=== PATIENT | female | born 1945 | race African-American/Black ===

== ENCOUNTER 2017-11-14 10:16 | Emergency (ER) | payer OTHER ==
[2017-11-14 11:39] LABS: Absolute Lymphocytes (CBC) 1.6 K/uL (0.7-4.9); Absolute Monocytes 0.5 K/uL (0.1-1.3); Absolute Neutrophil 2.2 K/uL (1.8-8.0); Basophils % 1.3 % (0-1.3); Eosinophils % 3.9 % (0-4.4); Hematocrit 40.1 % (36.0-45.0); Lymphocytes % 35.3 % (15.3-44.8); MCH 28.7 pg (27.0-35.0); MCV 84.8 fL (80-100); MPV 9.3 fL (7.6-11.3); Monocytes % 10.2 % (3.3-12.3); RBC Red Blood Cell Count 4.73 M/uL (3.86-4.86)
[2017-11-14 11:42] LABS: Protime INR 0.94
--- NOTE | 2017-11-14 11:53 | RAD REPORT ---
EXAM DESCRIPTION: RAD - Chest Single View - 11/14/2017 11:40 am CLINICAL HISTORY: weakness Chest pain. COMPARISON: Chest Pa And Lat (2 Views) dated 11/14/2016; CHEST SINGLE VIEW dated 10/19/2013; CHEST PA AND LAT 2 VIEW dated 11/15/2010; CHEST SINGLE VIEW dated 04/12/1999 FINDINGS: Portable technique limits examination quality. The lungs are grossly clear. The heart is upper limit normal in size. No displaced fractures. IMPRESSION: No acute intrathoracic process suspected.
[2017-11-14 12:00] LABS: Urine Blood NEGATIVE (NEG); Urine Glucose NEGATIVE (NEG); Urine Protein TRACE (NEG)
[2017-11-14 12:44] LABS: Albumin 3.6 g/dL (3.4-5.0); Bilirubin Direct 0.1 mg/dL (0-0.2); Bilirubin Total 0.4 mg/dL (0.2-1.0); Magnesium 1.6 mg/dL (1.8-2.4); Potassium 3.7 mmol/L (3.5-5.1); Protein, Total 7.6 g/dL (6.4-8.2); Thyroid Stimulating Hormone 1.26 uIU/mL (0.36-3.74)
--- NOTE | 2017-11-14 12:54 | ER ---
Nurse's Notes [facility] Name: Daniela Degroot Age: 72 yrs Sex: Female : 1945 Arrival Date: 11/14/2017 Time: 10:21 Bed 19 Private MD: Howard Wright Diagnosis: Weakness;Malaise and fatigue Presentation: 11/14 10:22 Presenting complaint: Patient states: "I got up this morning and took my blood sugar aj1 and said it was out of range. I called my doctor who told me to check it again. When I did it was 459, so they told me to come to the emergency room" Denies pain, reports dizziness and blurred vision. Transition of care: patient was not received from another setting of care. Onset of symptoms was November 14, 2017. Risk Assessment: Do you want to hurt yourself or someone else? Patient reports no desire to harm self or others. Initial Sepsis Screen: Does the patient meet any 2 criteria? No. Patient's initial sepsis screen is negative. Does the patient have a suspected source of infection? No. Patient's initial sepsis screen is negative. Care prior to arrival: None. 10:22 Method Of Arrival: Ambulatory aj1 10:22 Acuity: NEIL 3 aj1 Triage Assessment: 10:25 General: Appears in no apparent distress. comfortable, Behavior is calm, cooperative, aj1 appropriate for age. Pain: Denies pain. Neuro: Level of Consciousness is awake, alert, obeys commands, Gait is steady, Speech is normal, Facial symmetry appears normal, Reports blurred vision dizziness, headache generalized weakness. Cardiovascular: Patient's skin is warm and dry. Respiratory: Airway is patent Respiratory effort is even, unlabored, Respiratory pattern is regular, symmetrical. GI: Patient currently denies nausea, vomiting. Musculoskeletal: Circulation, motion, and sensation intact. Historical: - Allergies: 10:25 Codeine; aj1 - Home Meds: 10:25 Verapamil Oral [Active]; Metformin Oral [Active]; losartan oral oral [Active]; insulin aj1 pen [Active]; - PMHx: 10:25 Diabetes - NIDDM; Hypertension; aj1 - PSHx: 10:25 Knee surgery; aj1 - Immunization history:: Flu vaccine is up to date. - Social history:: Smoking status: Patient/guardian denies using tobacco. - Ebola Screening: : Patient denies travel to an Ebola-affected area in the 21 days before illness onset. Screenin:10 Abuse screen: Denies threats or abuse. Denies injuries from another. Nutritional sg screening: No deficits noted. Tuberculosis screening: No symptoms or risk factors identified. Never had TB. Fall Risk None identified. Assessment: 12:55 Reassessment: Patient appears in no apparent distress at this time. Patient and/or sg family updated on plan of care and expected duration. Pain level reassessed. Patient is alert, oriented x 3, equal unlabored respirations, skin warm/dry/pink. orders received for IV Mag along with DC to home Patient denies pain at this time. Vital Signs: 10:25 BP 152 / 93; Pulse 87; Resp 18; Temp 97.9(TE); Pulse Ox 99% on R/A; Weight 85.73 kg aj1 (R); Height 5 ft. 2 in. (157.48 cm) (R); Pain 0/10; 10:59 BP 147 / 77; Pulse 86; Resp 17; Pulse Ox 97% on R/A; mh5 12:31 BP 165 / 82; Pulse 78; Resp 17; Pulse Ox 98% on R/A; mh5 13:30 BP 142 / 77; Pulse 77; Resp 17; Temp 97.9; Pulse Ox 99% on R/A; Pain 0/10; sg 10:25 Body Mass Index 34.57 (85.73 kg, 157.48 cm) aj1 ED Course: 10:21 Patient arrived in ED. mr 10:21 Howard Wright MD is Private Physician. mr 10:24 Triage completed. aj1 10:25 Arm band placed on Patient placed in an exam room. aj1 10:29 Wyatt Jordan, ITZ is Primary Nurse. sg 10:30 Nilesh Rivero MD is Attending Physician. kdr 11:00 Patient has correct armband on for positive identification. Bed in low position. Call [facility] light in reach. Adult w/ patient. Pulse ox on. NIBP on. 11:28 Initial lab(s) drawn, by tn, sent to lab. Inserted saline lock: 20 gauge in right [facility] antecubital area, using aseptic technique. Blood collected. 11:30 No provider procedures requiring assistance completed. sg 11:32 Basic Metabolic Panel Sent. mh5 11:32 CBC with Diff Sent. mh5 11:32 LFT's Sent. 5 11:32 Magnesium Sent. 5 11:32 NT PRO-BNP Sent. 5 11:32 PT-INR Sent. 5 11:32 Ptt, Activated Sent. mh5 11:32 Troponin (emerg Dept Use Only) Sent. mh5 11:39 XRAY Chest (1 view) In Process Unspecified. EDMS 12:53 Howard Wright MD is Referral Physician. kdr 13:35 IV discontinued, intact, bleeding controlled, No redness/swelling at site. Pressure sg dressing applied. Administered Medications: 12:55 Drug: Magnesium Sulfate 1 grams Route: IVPB; Infused Over: 1 hrs; Site: right forearm; sg 13:35 Follow up: Response: No adverse reaction; IV Status: Completed infusion sg Point of Care Testing: Blood Glucose: 10:59 Blood Glucose: 106 mg/dL; 5 Ranges: Outcome: 12:53 Discharge ordered by MD. kdr 13:34 Patient left the ED. iw 13:35 Discharged to home ambulatory, with family. sg 13:35 Condition: good 13:35 Discharge instructions given to patient, Instructed on discharge instructions, follow up and referral plans. safety practices, Demonstrated understanding of instructions, follow-up care. Signatures: Dispatcher [employer] Kailyn Bowman RN RN aj1 Gay, Steven, RN RN sg Rittger, Kevin, MD MD kdr Rivera, Maria mr Williams, Irene, RN RN iw Martinez, Maria [facility]
--- NOTE | 2017-11-14 12:54 | EDPHYS ---
Physician Documentation [facility] Name: Daniela Degroot Age: 72 yrs Sex: Female : 1945 Arrival Date: 11/14/2017 Time: 10:21 Bed 19 Private MD: Howard Wright ED Physician Nilesh Rivero HPI: 11/14 18:48 This 72 yrs old Black Female presents to ER via Ambulatory with complaints of High kdr Blood Sugar. 18:48 The patient or guardian reports hyperglycemia, that was potentially precipitated by no kdr particular event, with the patient's symptoms witnessed by no one. Onset: The symptoms/episode began/occurred this morning, today. Associated signs and symptoms: Pertinent positives: None. Pertinent negatives: anorexia, constipation, decreased urine output, diaphoresis, diarrhea, dry skin. Current symptoms: In the emergency department the patient's symptoms are unchanged from the initial presentation. The patient has not experienced similar symptoms in the past. The patient has not recently seen a physician. Was told to come to the ED after several outside [facility] were noted to be high. Historical: - Allergies: 10:25 Codeine; aj1 - Home Meds: 10:25 Verapamil Oral [Active]; Metformin Oral [Active]; losartan oral oral [Active]; insulin aj1 pen [Active]; - PMHx: 10:25 Diabetes - NIDDM; Hypertension; aj1 - PSHx: 10:25 Knee surgery; aj1 - Immunization history:: Flu vaccine is up to date. - Social history:: Smoking status: Patient/guardian denies using tobacco. - Ebola Screening: : Patient denies travel to an Ebola-affected area in the 21 days before illness onset. ROS: 18:48 Constitutional: Negative for fever, chills, and weight loss, Eyes: Negative for injury, kdr pain, redness, and discharge, Neck: Negative for injury, pain, and swelling, Cardiovascular: Negative for chest pain, palpitations, and edema, Respiratory: Negative for shortness of breath, cough, wheezing, and pleuritic chest pain, Abdomen/GI: Negative for abdominal pain, nausea, vomiting, diarrhea, and constipation, Back: Negative for injury and pain, : Negative for injury, bleeding, discharge, and swelling, MS/Extremity: Negative for injury and deformity, Skin: Negative for injury, rash, and discoloration, Neuro: Negative for headache, weakness, numbness, tingling, and seizure activity. Psych: Negative for depression, anxiety, suicide ideation, homicidal ideation, and hallucinations, Allergy/Immunology: Negative for hives, rash, and allergies, Hematologic/Lymphatic: Negative for swollen nodes, abnormal bleeding, and unusual bruising. 18:48 Endocrine: Positive for polydipsia, polyuria, Negative for cold intolerance, heat intolerance, polyphagia, weight gain, weight loss, acute changes. Exam: 18:48 Constitutional: This is a well developed, well nourished patient who is awake, alert, kdr and in no acute distress. Head/Face: Normocephalic, atraumatic. Eyes: Pupils equal round and reactive to light, extra-ocular motions intact. Lids and lashes normal. Conjunctiva and sclera are non-icteric and not injected. Cornea within normal limits. Periorbital areas with no swelling, redness, or edema. Neck: Trachea midline, no thyromegaly or masses palpated, and no cervical lymphadenopathy. Supple, full range of motion without nuchal rigidity, or vertebral point tenderness. No Meningismus. Chest/axilla: Normal chest wall appearance and motion. Nontender with no deformity. No lesions are appreciated. Cardiovascular: Regular rate and rhythm with a normal S1 and S2. No gallops, murmurs, or rubs. Normal PMI, no JVD. No pulse deficits. Respiratory: Lungs have equal breath sounds bilaterally, clear to auscultation and percussion. No rales, rhonchi or wheezes noted. No increased work of breathing, no retractions or nasal flaring. Abdomen/GI: Soft, non-tender, with normal bowel sounds. No distension or tympany. No guarding or rebound. No evidence of tenderness throughout. Back: No spinal tenderness. No costovertebral tenderness. Full range of motion. Skin: Warm, dry with normal turgor. Normal color with no rashes, no lesions, and no evidence of cellulitis. MS/ Extremity: Pulses equal, no cyanosis. Neurovascular intact. Full, normal range of motion. Neuro: Awake and alert, GCS 15, oriented to person, place, time, and situation. Cranial nerves II-XII grossly intact. Motor strength 5/5 in all extremities. Sensory grossly intact. Cerebellar exam normal. Normal gait. Psych: Awake, alert, with orientation to person, place and time. Behavior, mood, and affect are within normal limits. Vital Signs: 10:25 BP 152 / 93; Pulse 87; Resp 18; Temp 97.9(TE); Pulse Ox 99% on R/A; Weight 85.73 kg aj1 (R); Height 5 ft. 2 in. (157.48 cm) (R); Pain 0/10; 10:59 BP 147 / 77; Pulse 86; Resp 17; Pulse Ox 97% on R/A; mh5 12:31 BP 165 / 82; Pulse 78; Resp 17; Pulse Ox 98% on R/A; mh5 13:30 BP 142 / 77; Pulse 77; Resp 17; Temp 97.9; Pulse Ox 99% on R/A; Pain 0/10; sg 10:25 Body Mass Index 34.57 (85.73 kg, 157.48 cm) aj1 MDM: 12:53 Patient medically screened. kdr 18:48 Data reviewed: vital signs, nurses notes, lab test result(s). Counseling: I had a kdr detailed discussion with the patient and/or guardian regarding: the historical points, exam findings, and any diagnostic results supporting the discharge/admit diagnosis, lab results, the need for outpatient follow up. 11/14 11:06 Order name: Basic Metabolic Panel; Complete Time: 12:47 [facility] 11/14 11:06 Order name: CBC with Diff; Complete Time: 11:54 [facility] 11/14 11:06 Order name: LFT's; Complete Time: 12:47 [facility] 11/14 11:06 Order name: Magnesium; Complete Time: 12:47 [facility] 11/14 11:06 Order name: NT PRO-BNP; Complete Time: 12:47 [facility] 11/14 11:06 Order name: PT-INR; Complete Time: 11:54 [facility] 11/14 11:06 Order name: Ptt, Activated; Complete Time: 11:54 [facility] 11/14 11:06 Order name: Troponin (emerg Dept Use Only); Complete Time: 12:26 kdr 11/14 11:06 Order name: XRAY Chest (1 view); Complete Time: 11:54 [facility] 11/14 11:06 Order name: EKG; Complete Time: 11:07 [facility] 11/14 11:06 Order name: TSH; Complete Time: 12:47 kdr 11/14 11:55 Order name: Urine Dipstick--Ancillary (enter results); Complete Time: 12:26 ag 11/14 12:58 Order name: Diet Renal; Complete Time: 12:58 ag 11/14 11:06 Order name: Cardiac monitoring; Complete Time: 11:33 kdr 11/14 11:06 Order name: EKG - Nurse/Tech; Complete Time: 12:01 kdr 11/14 11:06 Order name: IV Saline Lock; Complete Time: 11:33 kdr 11/14 11:06 Order name: Labs collected and sent; Complete Time: 11:33 kdr 11/14 11:06 Order name: O2 Per Protocol; Complete Time: 12:01 kdr 11/14 11:06 Order name: O2 Sat Monitoring; Complete Time: 12:01 kdr 11/14 11:06 Order name: Urine Dipstick-Ancillary (obtain specimen); Complete Time: 12:01 kdr Administered Medications: 12:55 Drug: Magnesium Sulfate 1 grams Route: IVPB; Infused Over: 1 hrs; Site: right forearm; sg 13:35 Follow up: Response: No adverse reaction; IV Status: Completed infusion sg Point of Care Testing: Blood Glucose: 10:59 Blood Glucose: 106 mg/dL; mh5 Ranges: Critical Glucose Levels:Adult <50 mg/dl or >400 mg/dl <40 mg/dl or >180 mg/dl Disposition: 11/14/17 12:53 Discharged to Home. Impression: Weakness, Malaise and fatigue. - Condition is Stable. - Discharge Instructions: Fatigue, Weakness, [id number]. - Medication Reconciliation Form, Thank You Letter form. - Follow up: Howard Wright MD; When: 1 - 2 days; Reason: If symptoms return, Further diagnostic work-up, Recheck today's complaints, Continuance of care, Re-evaluation by your physician. - Problem is new. - Symptoms have improved. Signatures: Dispatcher [employer] EDKailyn Fontanez RN RN aj1 Wyatt Jordan RN RN sg Nilesh Rivero MD MD kdr Mariluz Garcia RN RN iw Corrections: (The following items were deleted from the chart) 13:34 12:53 11/14/2017 12:53 Discharged to Home. Impression: Weakness; Malaise and fatigue. iw Condition is Stable. Forms are Medication Reconciliation Form, Thank You Letter, Antibiotic Education, Prescription Opioid Use. Follow up: Howard Wright; When: 1 - 2 days; Reason: If symptoms return, Further diagnostic work-up, Recheck today's complaints, Continuance of care, Re-evaluation by your physician. Problem is new. Symptoms have improved. kdr
[2017-11-14] MEDS ORDERED: Magnesium Sulfate 1gm IVPB 1 GM/50 ML BAG IV ONE (13:01)
[2017-11-14 13:49] VITALS: TEMP 97.9
[2017-11-14 13:52] VITALS: BP 165/82; O2SAT 98
--- NOTE | 2017-11-14 15:07 | EKG ---
Test Date: 2017-11-14 Test Time: 11:49:48 Linen Controller: RODNEY MEASUREMENT RESULTS: Intervals: Rate: 75 SD: 134 QRSD: 72 QT: 406 QTc: 453 Leon: P: 65 SD: 134 QRS: -34 T: 55 INTERPRETIVE STATEMENTS: Normal sinus rhythm Left axis deviation Minimal voltage criteria for LVH, may be normal variant Inferior infarct, age undetermined Possible Anterior infarct, age undetermined Abnormal ECG Compared to ECG 10/19/2013 15:40:24 Left-axis deviation now present Myocardial infarct finding still present Electronically Signed On 11-14-17 15:06:31 CDT by Arthur Navarro
== END 2017-11-14 13:34 | disposition home or self-care (01) ==
LOC: ER 10:16
DX: R53.1 Weakness (principal); Z88.5 Allergy status to narcotic agent; R63.1 Polydipsia; R35.8 Other polyuria; E11.9 Type 2 diabetes mellitus without complications; Z79.84 Long term (current) use of oral hypoglycemic drugs; R53.81 Other malaise; R53.83 Other fatigue
CPT/HCPCS: 36415; 71045; 80048; 80076; 81003; 82962; 83735; 83880; 84443; 84484; 85025; 85610; 85730; 93005; 96365; 99284; J3475

== ENCOUNTER 2021-01-26 10:49 | Day surgery (SDC) | payer OTHER ==
[2021-01-25 10:52] LABS: Absolute Lymphocytes (CBC) 1.2 K/uL (0.7-4.9); Basophils % 2.3 % (0-1.3); Hematocrit 39.5 % (36.0-45.0); Lymphocytes % 30.8 % (15.3-44.8); MPV 8.9 fL (7.6-11.3); RBC Red Blood Cell Count 4.66 M/uL (3.86-4.86)
[2021-01-25 10:55] LABS: Protime INR 0.96
[2021-01-25 11:07] LABS: Potassium 4.2 mmol/L (3.5-5.1)
--- NOTE | 2021-01-25 11:43 | RAD REPORT ---
EXAM DESCRIPTION: RAD - Chest Pa And Lat (2 Views) - 01/25/2021 10:55 am CLINICAL HISTORY: PreOp Heart Cath COMPARISON: Chest Pa And Lat (2 Views) dated 10/30/2018; Chest Single View dated 11/14/2017; Chest Pa And Lat (2 Views) dated 11/14/2016; CHEST SINGLE VIEW dated 10/19/2013 FINDINGS: Lines: None. Lungs: Irregular nodularity within the superior aspect of the right upper lobe. Pleural: No significant pleural effusions or pneumothorax. Cardiac: The heart size is within normal limits. Bones: No acute fractures. Other: IMPRESSION: No acute process identified. Increasing nodularity in the right upper lobe that is favor ed to be a chronic process, however nonemergent chest CT is recommended to exclude an underlying lesi on.
[2021-01-26 11:22] VITALS: TEMP 97.2
[2021-01-26] MEDS ORDERED: NA CHLORIDE 0.9% 500 ML ONE (11:24)
[2021-01-26] MEDS ORDERED: MIDAZOLAM HCL 2 MG/2 ML INJ ONE (11:43)
[2021-01-26] MEDS ORDERED: HEPA 1000U/500MLS 2,000 UNIT/1,000 ML BAG IV ONE (11:43)
[2021-01-26] MEDS ORDERED: FENTANYL CITR 100 MCG/2 ML ONE (11:44)
[2021-01-26] MEDS ORDERED: NITROGLYCERIN 100 MCG/ML SYR (for cath lab use only) IV ONE (11:44)
[2021-01-26] MEDS ORDERED: HEPARIN 5000 UNIT/ML 1 ML VIAL ONE (11:44)
[2021-01-26] MEDS ORDERED: VERAPAMIL HCL 10 MG/4 ML VIAL IV ONE (11:44)
[2021-01-26] MEDS ORDERED: ATROPINE SULF 1 MG/10 ML SYR IV ONE (11:44)
[2021-01-26] MEDS ORDERED: NITROGLYCERIN/D5W 25 MG/250 ML BTL IV ONE (11:45)
[2021-01-26] MEDS ORDERED: REGADENOSON 0.4 MG/5 ML SYR IV ONE (13:18)
[2021-01-26] MEDS ORDERED: HYDRALAZINE HCL 20 MG/ML VIAL ONE (13:30)
[2021-01-26] MEDS ORDERED: ONDANSETRON 4 MG/2 ML VIAL ONE (13:51)
[2021-01-26] MEDS ORDERED: ACETAMINOPHEN 325 MG TABLET ONE (14:57)
--- NOTE | 2021-01-26 15:49 | OP ---
Date of Procedure: 01/26/2021 Surgeon: JAIDEN FOX Procedures Performed: 1.Selective coronary angiogram. 2.Left heart catheterization. 3.FFR of mid LAD, moderate stenosis which was insignificant with value of 0.92. Access: Right radial artery 6-Polish closed with TR band. Indication: Unstable angina. Complications: None. Bleeding: Less than 10 mL. Anesthesia: Total sedation time was 40 minutes. Description Of Procedure: After risks, benefits, and alternatives were explained, the patient agreed to proceed and signed informed consent. The patient was brought into the cardiac catheterization la boratory, prepped and draped in usual sterile fashion. We used fentanyl and Versed in incremental do ses to achieve adequate moderate sedation. Then, we accessed right radial artery using pediatric saige ropuncture kit and placed a 6-Polish Slender sheath and then took a 5-Polish [place] 4.0 catheter in th e aortic root, engaged the left main and right coronary artery, took standard views. Then gave syste saige heparin to assure ACT level above 250 and then took a Comet wire into the aortic root, equalized pressures and then a wire was advanced through the left main into the LAD passing the area of stenosi s. FFR was done using Lexiscan and value obtained was 0.92. Then, pulling back showed no drift. Fi nal angiogram showed no complications. Then, we removed the catheter and sheath and placed TR band w ith good hemostasis. Findings: 1.Left main; large, normal. 2.LAD; proximal portion is normal. Midportion has calcified 40% stenosis, very long. Negative FFR with value of 0.92. Distal LAD, there is an area of focally about 40% with CARLOZ-3 flow throughout th e vessel. Diagonal 1 branch has proximal 50% to 60%, but it is a small vessel. 3.Left circumflex; large, dominant vessel with no significant disease. 4.RCA; small nondominant. No significant disease. 5.Catheter was advanced over the wire into the LV. LVEDP was measured at 19 mmHg. Pullback did not record any gradient. Conclusion: 1.[id number] mid LAD stenosis, heavily calcified with a negative FFR value of 0.92. 2.LVEDP of 19 mmHg. Recommendation: Medical management. SR/MODL Voice ID: [id number] Report ID: [id number]
[2021-01-26 17:41] VITALS: BP 143/70; O2SAT 98
== END 2021-01-26 18:19 | disposition home or self-care (01) ==
LOC: CCL 10:49
PROVIDERS: ATTEND Internal Medicine
DX: I25.110 Atherosclerotic heart disease of native coronary artery with unstable angina pectoris (principal); I65.23 Occlusion and stenosis of bilateral carotid arteries; I10 Essential (primary) hypertension; E78.5 Hyperlipidemia, unspecified; Z87.891 Personal history of nicotine dependence; Z20.822 Contact with and (suspected) exposure to COVID-19; Z88.6 Allergy status to analgesic agent; Z82.49 Family history of ischemic heart disease and other diseases of the circulatory system
CPT/HCPCS: 85025; 80048; 36415; 85610; 82947; 85730; 71046; 93458; 93571; U0003; C1893; J0360; J1644 ×2; J2250; J3010; J2785; J7040; J2405; 85347

== ENCOUNTER 2022-07-13 07:49 | Day surgery (SDC) | payer OTHER ==
[2022-07-10 14:39] LABS: Absolute Lymphocytes (CBC) 1.5 K/uL (0.7-4.9); Hematocrit 38.7 % (36.0-45.0); Lymphocytes % 26.5 % (15.3-44.8); RBC Red Blood Cell Count 4.66 M/uL (3.86-4.86)
[2022-07-10 14:42] LABS: Protime INR 1.01
--- NOTE | 2022-07-10 14:46 | RAD REPORT ---
EXAM DESCRIPTION: RAD - Chest Pa And Lat (2 Views) - 07/10/2022 2:26 pm CLINICAL HISTORY: pdre op for surgery Chest pain. COMPARISON: Chest Pa And Lat (2 Views) dated 11/28/2021; Chest Pa And Lat (2 Views) dated 01/25/2021; Chest Pa And Lat (2 Views) dated 10/30/2018; Chest Single View dated 11/14/2017 FINDINGS: Mild interstitial pulmonary edema. The heart is mildly prominent size. No displaced fractu res. IMPRESSION: Mild CHF.
[2022-07-10 14:48] LABS: Potassium 3.6 mmol/L (3.5-5.1)
--- NOTE | 2022-07-11 13:05 | EKG ---
Test Date: 2022-07-10 Test Time: 14:08:43 Green Marketer: GRAHAM MEASUREMENT RESULTS: Intervals: Rate: 74 IL: 154 QRSD: 68 QT: 414 QTc: 459 Adrian: P: 71 IL: 154 QRS: -26 T: 76 INTERPRETIVE STATEMENTS: Normal sinus rhythm Inferior infarct, age undetermined Anterior infarct, age undetermined Abnormal ECG Compared to ECG 11/14/2017 11:49:48 Left-axis deviation no longer present Left ventricular hypertrophy no longer present Myocardial infarct finding still present Electronically Signed On 07-11-22 13:03:16 SOUND EQUIPMENT MECHANIC by Ravin Laguna
[2022-07-13] MEDS ORDERED: CEFAZOLIN SODIUM 2 GM/VIAL ONE (08:10)
[2022-07-13] MEDS ORDERED: NA CHLORIDE 0.9% 1,000 ML ONE (08:10)
[2022-07-13] MEDS ORDERED: propofoL 200 MG/20 ML VIAL IV ONE ×2 (08:14→10:14)
[2022-07-13] MEDS ORDERED: LIDOCAINE 2% MPF 5 ML VIAL ONE (08:14)
[2022-07-13] MEDS ORDERED: NS 0.9% VIAL 30 ML ONE (08:14)
[2022-07-13] MEDS ORDERED: LIDOCAINE 1% MPF 30 ML VIAL ONE (08:14)
[2022-07-13] MEDS ORDERED: dexAMETHasone 10 MG/ML VIAL ONE (09:16)
[2022-07-13] MEDS ORDERED: MIDAZOLAM HCL 2 MG/2 ML INJ ONE (09:16)
[2022-07-13] MEDS ORDERED: FENTANYL CITR 100 MCG/2 ML ONE (09:16)
[2022-07-13] MEDS ORDERED: ONDANSETRON 4 MG/2 ML VIAL ONE (09:16)
[2022-07-13] MEDS: BUPIVACAINE 0.25% PF 10 ML VIAL ONE ×2 (10:18→10:27)
--- NOTE | 2022-07-13 10:55 | P.BOP ---
Preoperative diagnosis: left thumb, ring finger trigger digit Postoperative diagnosis: same Primary procedure: left thumb, ring finger A1 zenobia release Police Artist: NONE,NONE Estimated blood loss: 3 cc Specimen: none Findings: see dictation Anesthesia: General Complications: None Implants: none Fluids & blood products: per anesthesia record Transferred to: Recovery Room Condition: Good
[2022-07-13 15:31] VITALS: BP 136/60
[2022-07-13 15:32] VITALS: TEMP 97.5; O2SAT 98
--- NOTE | 2022-07-13 18:13 | OP ---
Date of Procedure: 07/13/2022 Surgeon: Flex Burton MD Preoperative Diagnosis: Left hand ring finger as well as left thumb trigger digit. Postoperative Diagnosis: Left hand ring finger as well as left thumb trigger digit. Procedures Performed: 1.Left thumb A1 zenobia release. 2.Left ring finger A1 zenobia release. Anesthesia: [place] block. Complications: None. Implants: None. Tourniquet Time: Per Anesthesia record. Indications For Procedure: Daniela is a 77-year-old female, who presented my clinic with signs and s ymptoms consistent with a left thumb and ring finger trigger digit. The patient failed conservative treatment measures, now with significant pain that interfered with her activities of daily living. I discussed with the patient at length risks, benefits associated with operative and nonoperative zoë tment. She expressed understanding and elect to proceed with operative treatment. Description Of Procedure: After informed consent was obtained, the patient was identified in the pre operative holding area. The left thumb and ring finger were marked. The patient was then brought ba to the operating room, transferred to the operative table in a supine fashion and [place] block anest hesia was performed. The left upper extremity was then prepped and draped in usual sterile fashion. A time-out was initiated. The correct patient and procedure were confirmed and identified. The pat ient had received her preoperative prophylactic antibiotics. Attention was first taken to the ring f madalyn where approximately 2 cm longitudinal incision was made at the base of the ring finger over the metacarpal head. Dissection was then taken down to the A1 zenobia flexor tendon sheath. A 15 blade was then used to release the A1 zenobia and portion of the A1 zenobia was excised using tenotomies. Th ere was full excursion of the tendon without triggering noted. Next, attention was taken to the thum b. Approximately, a 1.5 cm incision was made at the thenar crease at the base of the thumb. Dissect ion was then taken of the flexor tendon sheath, which was identified. The digital nerves were gently retracted. A 15 blade was then used to incise the A1 zenobia and it was released. The portion of th e tendon sheath was excised with tenotomy. There was full excursion of the flexor tendons of the mónica mb without triggering noted. The wounds were then irrigated thoroughly with normal saline. Skin was approximated using a 5-0 Prolene. Sterile dressings were applied. Tourniquet was let down. The pa tient was awakened and transferred to PACU in stable condition. CV/MODL Voice ID: [id number] Report ID: [id number]
== END 2022-07-13 11:42 | disposition home or self-care (01) ==
LOC: OR 07:49
PROVIDERS: ATTEND Orthopaedic Surgery Sports Medicine
PROC: 0LN80ZZ Release Left Hand Tendon, Open Approach (ICD-10-PCS; 2022-07-13)
PROC: 0LN80ZZ Release Left Hand Tendon, Open Approach (ICD-10-PCS; principal; 2022-07-13 09:15)
DX: M65.342 Trigger finger, left ring finger (principal); M65.312 Trigger thumb, left thumb
CPT/HCPCS: 36415; 71046; 80048; 82947; 85025; 85610; 85730; 93005; A4216; J1100; J2001; J2250; J2405; J2704; J3010; J7030

== ENCOUNTER 2022-09-21 09:20 | Day surgery (SDC) | payer OTHER ==
[2022-09-19 11:00] LABS: Absolute Lymphocytes (CBC) 1.2 K/uL (0.7-4.9); Hematocrit 38.6 % (36.0-45.0); Lymphocytes % 28.8 % (15.3-44.8); MCV 83.6 fL (80-100); MPV 9.1 fL (7.6-11.3); RBC Red Blood Cell Count 4.61 M/uL (3.86-4.86)
[2022-09-19 11:05] LABS: Protime INR 1.1
[2022-09-19 11:12] LABS: Potassium 3.8 mEq/L (3.5-5.1)
[2022-09-21] MEDS ORDERED: CEFAZOLIN SODIUM 2 GM/VIAL ONE (09:44)
[2022-09-21] MEDS ORDERED: NA CHLORIDE 0.9% 1,000 ML ONE (09:44)
[2022-09-21] MEDS ORDERED: propofoL 200 MG/20 ML VIAL IV ONE (10:27)
[2022-09-21] MEDS ORDERED: MIDAZOLAM HCL 2 MG/2 ML INJ ONE (10:27)
[2022-09-21] MEDS ORDERED: FENTANYL CITR 100 MCG/2 ML ONE (10:27)
[2022-09-21] MEDS ORDERED: BUPIVACAINE 0.25% PF 10 ML VIAL ONE (10:27)
[2022-09-21] MEDS ORDERED: LIDOCAINE 2% MPF 5 ML VIAL ONE (10:28)
[2022-09-21] MEDS ORDERED: ONDANSETRON 4 MG/2 ML VIAL ONE (10:28)
[2022-09-21] MEDS ORDERED: dexAMETHasone 4 MG/ML VIAL ONE (10:51)
[2022-09-21] MEDS ORDERED: KETOROLAC 30 MG/ML INJ ONE (11:09)
--- NOTE | 2022-09-21 11:09 | P.BOP ---
Preoperative diagnosis: right ring finger trigger finger Postoperative diagnosis: same Primary procedure: right ring finger A1 zenobia release Condenser Winder: NONE,NONE Estimated blood loss: 2 cc Specimen: none Findings: see dictation Anesthesia: General Complications: None Implants: none Fluids & blood products: per anesthesia record; TT: 11 mins @ 250 mmHg Transferred to: Recovery Room Condition: Good
[2022-09-21] MEDS: HYDROMORPHONE HCL 1 MG/ML INJ ONE ×2 (11:38→11:44)
--- NOTE | 2022-09-21 11:42 | OP ---
Date of Procedure: 09/21/2022 Surgeon: Flex Burton MD Preoperative Diagnoses: Right ring finger trigger digit. Right ring finger ganglion cyst, flexor te ndon sheath. Postoperative Diagnosis: Right ring finger trigger digit. Right ring finger ganglion cyst, flexor t endon sheath. Procedures Performed: Right ring finger A1 zenobia release. Right ring finger ganglion cyst excision . Anesthesia: General LMA. Fluids: Per Anesthesia record. Estimated Blood Loss: 2 cc. Complications: None. Implants: None. Tourniquet Time: 11 minutes at 250 mmHg. Specimens: Right ring finger flexor tendon sheath ganglion cyst. Indication For Procedures: Daniela is a 77-year-old female who presented to my clinic with signs and symptoms consistent with the right ring finger trigger digit. Patient failed conservative treatment measures including corticosteroid injection. The pain interfered with her activities of daily livin g and she elected to proceed with operative treatment. Description Of Procedure: After informed consent was obtained, the patient was identified in the pre operative holding area. The right upper extremity was marked. Patient was then brought back to the operating room, transferred into the operating table in supine fashion, placed under general LMA anes thesia. The right upper extremity was then prepped and draped in usual sterile fashion. A time-out was initiated. The correct patient and procedure were confirmed and identified. The patient did rec eive preoperative prophylactic antibiotics. The right upper extremity was exsanguinated. The tourni quet was inflated to 250 mmHg. A standard 2 cm longitudinal incision was made and centered over the A1 zenobia of the ring finger. Dissection was then taken down to the flexor tendon sheath where a ariane glion cyst was noted just superficial and seated on the flexor tendon sheath. The ganglion cyst was then excised. It was approximately 4 mm in size, and it was sent to Pathology. A 15 blade was then used to incise the flexor tendon sheath to perform an A1 zenobia release. A portion of the flexor ten don sheath was then excised to minimize risk for recurrence. The flexor tendon was brought out throu gh the incision and there was noted to be full excursion of the tendon without triggering noted. Wou nd was then irrigated thoroughly with normal saline. Skin was approximated using a 5-0 Prolene. Jose J rile dressings were applied. Tourniquet was let down. The patient was awakened and transferred to P ACU in stable condition. Postoperative Plan: The patient will be nonweightbearing to right upper extremity. She will follow up in clinic in 1 to 2 weeks for suture removal. CV/MODL Voice ID: [id number] Report ID: [id number]
[2022-09-21] MEDS ORDERED: HYDROCODONE/APAP 10/325 TAB ONE (12:09)
[2022-09-21 12:50] VITALS: O2SAT 97
[2022-09-21 12:55] VITALS: BP 133/94; TEMP 97.1
== END 2022-09-21 12:42 | disposition home or self-care (01) ==
LOC: OR 09:20
PROVIDERS: ATTEND Orthopaedic Surgery Sports Medicine
PROC: 0LB70ZZ Excision of Right Hand Tendon, Open Approach (ICD-10-PCS; 2022-09-21)
PROC: 0LN70ZZ Release Right Hand Tendon, Open Approach (ICD-10-PCS; principal; 2022-09-21 10:30)
DX: M65.341 Trigger finger, right ring finger (principal); M67.441 Ganglion, right hand
CPT/HCPCS: 85025; 80048; 36415; 85610; 82947; 88304; 85730; 26055; 26160; J2704; J1100; J2001; J2250; J3010; J1170; J2405; J7030

== ENCOUNTER 2022-10-13 10:11 | Emergency (ER) | payer OTHER ==
--- OUTSIDE RECORDS SUMMARY | 2022-10-13 10:14 | XMS REPORT | Continuity of Care Document ---
:1945 Author Organization [facility] t Address [address] [place] [address] [place] [id number] Care Team Providers Name Role Phone Howard Wright Rosario Primary Care Physician Cari Attending Clinician Unavailable Kevin Burris Attending Clinician [phone] Nurse, Pcp Immunization Attending Clinician Unavailable Tunde Ramirez DO Attending Clinician TUNDE RAMIREZ Attending Clinician Unavailable UMAIR CALVIN Attending Clinician Unavailable Cari Admitting Clinician Unavailable Payers Payer Name Policy Type Policy Number Effective Date Expiration Date [facility] [id number] (MEDICARE REPLACEMENT/ADVANT AGE - PPO) MEDICARE PART A [id number] 2012 \\T\\ B 00:00:00 [employer] INDEMNITY [id number] 2012 2020 00:00:00 00:00:00 Problems Condition Condition Condition Status Onset Resolution Last Treating Co mments Source Name Details Category Date Date Treatment Clinician Date Pain Pain Problem Active Rebecca 9-06 Orthope 00:00: dic 00 Sports Medic[facility] e Radial Radial Disease Active Univers styloid styloid 8-16 ity of [place]os[place] [facility] Bilateral Bilateral Disease Active Uni vers thumb pain thumb pain 7-20 it y of 00:00: [place] 00 Medical Branch Knee pain Knee Pain Problem Active Aza janice 9-08 Orthope 00:00: dic 00 Sports Medicin e Current Current Problem Active Rebecca tear of Tear of -27 Orthope medial Medial 00:00: dic cartilage Cartilage 00 Spor ts AND/OR AND/OR Medicin meniscus Meniscus e of knee of Knee Synovial Synovial Problem Active Azale a cyst of Cyst of 7-27 Orthope knee Knee 00:00: dic 00 Sports Medicin e Patellofem Patellofem Problem Active 2013-05 A zalea oral oral 06-06 Orthope osteoarthr Osteoarthr 00:00: di c itis itis 00 Sports Medicin e Derangemen Derangemen Problem Active 2013-05 A zalea t of knee t of Knee 06-06 Orth ope 00:00: dic 00 Sports Medicin e Synovitis Synovitis Problem Active 2013-05 Aza janice and and 06-06 Orthope tenosynovi Tenosynovi 00:00: di c tis tis 00 Sports Medicin e 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 1-14 Or thope t t 00:00: dic 00 Sports Medicin e Allergies, Adverse Reactions, Alerts Allergy Allergy Status Severity Reaction(s) Onset Inactive Treating Comm ents Source Name Type Date Date Clinician Codeine Propensi Active Nausea Univers ty to and/or 7-20 ity of adverse Vomiting 00:00: [place] reaction 00 Medical s Branch CODEINE DRUG Active N/V Univers INGREDI 7-20 ity of 00:00: [place] 00 Medical [facility] Codeine Allergy Active 2012-05 Rebecca to 0-15 Orthope substanc 00:00: dic e 00 Sports Medicin e Social History Social Habit Start Date Stop Date Quantity Comments Source Tobacco use and 2017-03-11 2017-03-11 Never used Universit y of exposure 00:00:00 00:00:00 [facility] Alcohol intake 2017-03-11 2017-03-11 Current drinker of Un iversity of 00:00:00 00:00:00 alcohol (finding) [facility] Alcohol Comment 2016-11-22 2016-11-22 occational Universit y of 00:00:00 00:00:00 [place] [facility] Sex [birth year] Universit y of 00:00:00 00:00:00 [facility] Smoking Status Start Date Stop Date Source Former Smoker Rebecca [facility] Never smoker [facility] Medical Branch Medications Ordered Filled Start Stop Current Ordering Indication Dosage Frequency Signature Comments Components Source Medication Medication Date Date Medication? Clinician (SIG) Name Name metFORMIN Yes Univers 500 mg 9-28 ity of tablet 00:00: [place] 00 Medical Branch diclofenac Yes 75mg Take 1 Unive rs 75 mg EC 7-20 tablet by ity of tablet 00:00: mouth 2 [place] 00 (two) Medical times Branch daily with meals. losartan-hy Yes 1{tbl} Take 1 Un elyse drochloroth 7-08 tablet by ity of iazide 00:00: mouth [place] 100-12.5 mg 00 daily. Medica l per tablet Branch NOVOFINE Yes USE ONCE Unive rs PLUS 32 7-03 DAILY ity of gauge x 00:00: DIRECTED 05/11" [place] 00 Medical Branch gabapentin Yes TAKE ONE Uni vers 300 mg 6-13 CAPSULE BY ity of capsule 00:00: MOUTH AT [place] 00 BEDTIME Medical Branch verapamil Yes 240mg Take 240 Uni vers 240 mg SR 6-13 mg by ity of tablet 00:00: mouth [place] 00 daily. Medical Branch LEVEMIR Yes INJECT 46 Unive rs FLEXTOUCH 4-25 UNITS ity of 100 unit/mL 00:00: SUBCUTANOE [place] (3 mL) 00 SLY DAILY Medical injection Branch albuterol albuterol No albuterol Rebecca sulfate HFA sulfate HFA sulfate Orthope 90 90 HFA 90 dic mcg/actuati mcg/actuati mcg/actuat Sports on aerosol on aerosol ion Med icin inhaler inhaler aerosol e INHALE 2 INHALE 2 inhaler PUFFS BY PUFFS BY INHALE 2 MOUTH EVERY MOUTH EVERY PUFFS BY 6 HOURS 6 HOURS MOUTH NEEDED NEEDED EVERY 6 HOURS NEEDED amlodipine amlodipine No amlodipine Rebecca 2.5 mg 2.5 mg 2.5 mg Orthope tablet TAKE tablet TAKE tablet dic 1 TABLET BY 1 TABLET BY TAKE 1 Sports MOUTH EVERY MOUTH EVERY TABLET BY Medicin DAY DAY MOUTH e EVERY DAY amlodipine amlodipine No amlodipine Rebecca 5 mg tablet 5 mg tablet 5 mg O rthope TAKE 1 TAKE 1 tablet dic TABLET BY TABLET BY TAKE 1 Spo rts MOUTH EVERY MOUTH EVERY TABLET BY Medicin DAY DAY MOUTH e EVERY DAY amoxicillin amoxicillin No amoxicilli Rebecca 500 500 n 500 Orthope mg-potassiu mg-potassiu mg-potassi dic m m um Sports clavulanate clavulanate clavulanat Medicin 125 mg 125 mg e 125 mg e tablet TAKE tablet TAKE tablet 1 TABLET BY 1 TABLET BY TAKE 1 MOUTH EVERY MOUTH EVERY TABLET BY 12 HOURS 12 HOURS MOUTH FOR 10 DAYS FOR 10 DAYS EVERY 12 HOURS FOR 10 DAYS atorvastati atorvastati No atorvastat Rebecca n 20 mg n 20 mg in 20 mg Ortho pe tablet TAKE tablet TAKE tablet dic 1 TABLET BY 1 TABLET BY TAKE 1 Sports MOUTH EVERY MOUTH EVERY TABLET BY Medicin DAY DAY MOUTH e EVERY DAY bromphenira bromphenira No bromphenir Rebecca mine-pseudo mine-pseudo amine-pseu Orthope ephedrine-D ephedrine-D doephedrin dic M 2 mg-30 M 2 mg-30 e-DM 2 Spo rts mg-10 mg/5 mg-10 mg/5 mg-30 Me dicin mL oral mL oral mg-10 mg/5 e syrup TAKE syrup TAKE mL oral 10 10 syrup TAKE MILLILITERS MILLILITERS 10 BY MOUTH 3 BY MOUTH 3 MILLILITER TIMES A DAY TIMES A DAY S BY MOUTH NEEDED NEEDED 3 TIMES A DAY NEEDED carvedilol carvedilol No carvedilol Rebecca 12.5 mg 12.5 mg 12.5 mg Orthop e tablet TAKE tablet TAKE tablet dic 1 TABLET BY 1 TABLET BY TAKE 1 Sports MOUTH TWICE MOUTH TWICE TABLET BY Medicin A DAY WITH A DAY WITH MOUTH e FOOD FOOD TWICE A DAY WITH FOOD ciclopirox ciclopirox No ciclopirox Rebecca 8 % topical 8 % topical 8 % O rthope solution solution topical dic APPLY TO APPLY TO solution Spo rts AFFECTED AFFECTED APPLY TO Med icin AREA ONCE AREA ONCE AFFECTED e DAILY. DAILY. AREA ONCE DAILY. diflupredna diflupredna No diflupredn Rebecca te 0.05 % te 0.05 % ate 0.05 % Orthope eye drops eye drops eye drops dic INSTILL,1 INSTILL,1 INSTILL,1 Sports DROP INTO DROP INTO DROP INTO Medicin LEFT EYE LEFT EYE LEFT EYE e EVERY 2 EVERY 2 EVERY 2 HOURS WHILE HOURS WHILE HOURS AWAKE FOR 3 AWAKE FOR 3 WHILE DAYS, THEN DAYS, THEN AWAKE FOR 4 TIMES A 4 TIMES A 3 DAYS, DAY DAY THEN 4 TIMES A DAY fluticasone fluticasone No fluticason Rebecca propionate propionate e Ort hope 50 50 propionate dic mcg/actuati mcg/actuati 50 S ports on nasal on nasal mcg/actuat M edicin spray,suspe spray,suspe ion nasal e nsion SPRAY nsion SPRAY spray,susp 1 SPRAY 1 SPRAY ension INTO EACH INTO EACH SPRAY 1 NOSTRIL NOSTRIL SPRAY INTO EVERY DAY EVERY DAY EACH NOSTRIL EVERY DAY furosemide furosemide No furosemide Rebecca 20 mg 20 mg 20 mg Orthope tablet TAKE tablet TAKE tablet dic 1 TABLET BY 1 TABLET BY TAKE 1 Sports MOUTH EVERY MOUTH EVERY TABLET BY Medicin DAY FOR 5 DAY FOR 5 MOUTH e DAYS DAYS EVERY DAY FOR 5 DAYS furosemide furosemide No furosemide Rebecca 40 mg 40 mg 40 mg Orthope tablet TAKE tablet TAKE tablet dic 1 TABLET BY 1 TABLET BY TAKE 1 Sports MOUTH EVERY MOUTH EVERY TABLET BY Medicin DAY MOUTH e EVERY DAY gabapentin gabapentin No gabapentin Rebecca 100 mg 100 mg 100 mg Orthope capsule RX capsule RX capsule RX dic by other MD by other MD by other Sports MD Medicin e gabapentin gabapentin No gabapentin Rebecca 600 mg 600 mg 600 mg Orthope tablet TAKE tablet TAKE tablet dic 1 TABLET BY 1 TABLET BY TAKE 1 Sports MOUTH EVERY MOUTH EVERY TABLET BY Medicin DAY MOUTH e EVERY DAY glimepiride glimepiride No glimepirid Rebecca 2 mg tablet 2 mg tablet e 2 mg Orthope TAKE 1 TAKE 1 tablet dic TABLET (2 TABLET (2 TAKE 1 Spo rts MG) BY MG) BY TABLET (2 Medici n MOUTH DAILY MOUTH DAILY MG) BY e WITH WITH MOUTH BREAKFAST BREAKFAST DAILY WITH OR THE OR THE BREAKFAST FIRST MAIN FIRST MAIN OR THE MEAL OF THE MEAL OF THE FIRST MAIN DAY DAY MEAL OF THE DAY Levemir Levemir No Levemir Rebecca U-100 U-100 U-100 Orthope Insulin 100 Insulin 100 Insulin dic unit/mL unit/mL 100 Sports subcutaneou subcutaneou unit/mL Medicin s solution s solution subcutaneo e RX by other RX by other us MD solution RX by other losartan 50 losartan 50 No losartan Rebecca mg-hydrochl mg-hydrochl 50 O rthope orothiazide orothiazide mg-hydroch dic 12.5 mg 12.5 mg lorothiazi Spo rts tablet RX tablet RX de 12.5 mg Medicin by other MD by other MD tablet RX e by other MD metformin metformin No metformin Rebecca 500 mg 500 mg 500 mg Orthope tablet RX tablet RX tablet RX dic by other MD by other MD by other Sports MD Medicin e metformin metformin No metformin Rebecca ER 500 mg ER 500 mg ER 500 mg Orthope tablet,exte tablet,exte tablet,ext dic nded nded ended Sports release 24 release 24 release 24 Medicin hr TAKE 1 hr TAKE 1 hr TAKE 1 e TABLET BY TABLET BY TABLET BY MOUTH EVERY MOUTH EVERY MOUTH DAY WITH DAY WITH EVERY DAY EVENING EVENING WITH MEAL MEAL EVENING MEAL methylpredn methylpredn No methylpred Rebecca isolone 4 isolone 4 nisolone 4 Orthope mg tablets mg tablets mg tablets dic in a dose in a dose in a dose Sports pack PER pack PER pack Medicin INSTRUCTION INSTRUCTION PER e ON THE ON THE INSTRUCTIO PACKAGE PACKAGE N ON THE PACKAGE montelukast montelukast No montelukas Rebecca 10 mg 10 mg t 10 mg Orthope tablet TAKE tablet TAKE tablet dic ONE (1) ONE (1) TAKE ONE Sport s TABLET(S) TABLET(S) (1) Medic in BY MOUTH BY MOUTH TABLET(S) e DAILY. DAILY. BY MOUTH DAILY. NovoFine NovoFine No NovoFine Aza janice Plus 32 Plus 32 Plus 32 Orthop e gauge x gauge x gauge x dic 1/6" needle 6" needle 16" S ports TEST ONCE TEST ONCE needle Med icin DAILY DAILY TEST ONCE e DAILY potassium potassium No potassium Rebecca chloride ER chloride ER chloride Orthope 10 mEq 10 mEq ER 10 mEq dic capsule,ext capsule,ext capsule,ex Sports ended ended tended Medicin release release release e TAKE 1 TAKE 1 TAKE 1 CAPSULE BY CAPSULE BY CAPSULE BY MOUTH EVERY MOUTH EVERY MOUTH DAY DAY EVERY DAY potassium potassium No potassium Rebecca chloride ER chloride ER chloride Orthope 20 mEq 20 mEq ER 20 mEq dic tablet,exte tablet,exte tablet,ext Sports nded nded ended Medicin release(par release(par release(pa e t/cryst) t/cryst) rt/cryst) TAKE 1 TAKE 1 TAKE 1 TABLET BY TABLET BY TABLET BY MOUTH EVERY MOUTH EVERY MOUTH DAY WITH DAY WITH EVERY DAY FOOD FOOD WITH FOOD prednisone prednisone No 5mg prednisone Rebecca 5 mg tablet 5 mg tablet 5 mg O rthope Take 5 mg Take 5 mg tablet dic by oral by oral Take 5 mg Spor ts route as route as by oral [facility] directed. directed. route as e directed. Refresh Refresh No Refresh Rebecca Tears 0.5 % Tears 0.5 % Tears 0.5 Orthope eye drops eye drops % eye dic INSTILL 1 INSTILL 1 drops Spor ts DROP 3 DROP 3 INSTILL 1 Medici n TIMES A DAY TIMES A DAY DROP 3 e TIMES A DAY terbinafine terbinafine No terbinafin Rebecca HCl 250 mg HCl 250 mg e HCl 250 Orthope tablet TAKE tablet TAKE mg tablet dic 1 TABLET BY 1 TABLET BY TAKE 1 Sports MOUTH EVERY MOUTH EVERY TABLET BY Medicin DAY DAY MOUTH e EVERY DAY Tresiba Tresiba No Tresiba Rebecca FlexTouch FlexTouch FlexTouch Orthope U-200 U-200 U-200 dic insulin 200 insulin 200 insulin Sports unit/mL (3 unit/mL (3 200 Med icin mL) mL) unit/mL (3 e subcutaneou subcutaneou mL) s pen s pen subcutaneo INJECT 60 INJECT 60 us pen UNITS UNITS INJECT 60 SUBCUTANEOU SUBCUTANEOU UNITS SLY DAILY SLY DAILY SUBCUTANEO USLY DAILY verapamil verapamil No verapamil Rebecca ER (SR) 240 ER (SR) 240 ER (SR) Orthope mg mg 240 mg dic tablet,exte tablet,exte tablet,ext Sports nded nded ended Medicin release release release e TAKE 1 TAKE 1 TAKE 1 TABLET BY TABLET BY TABLET BY MOUTH EVERY MOUTH EVERY MOUTH DAY DAY EVERY DAY Immunizations Ordered Filled Immunization Date Status Comments Sourc e Immunization Name Name SARS-COV-2 COVID-19 2021-01-11 Completed Unive rsity of PFIZER VACCINE 00:00:00 [facility] SARS-COV-2 COVID-19 2020-07-01 Completed Unive rsity of PFIZER VACCINE 00:00:00 [facility] SARS-COV-2 COVID-19 2020-06-03 Completed Unive rsity of PFIZER VACCINE 00:00:00 [facility] Procedures Procedure Date / Time Performed Performing Clinician Sour e XR, knee, 3 view 2021-12-12 00:00:00 [facility] SARS-COV-2 COVID-19 2021-01-11 13:17:20 Doctor Unassigned, No [facility] [place] VACCINE,0.3ML,IM Name Medical Branch (PFIZER) Plan of Care Planned Activity Planned Date Details Comments Source Instructions [facility] Encounters Start End Encounter Admission Attending Care Care Encounter Source Date/Time Date/Time Type Type Clinicians Facility Department ID 2022-08-28 2022-08-28 Outpatient [facility]_ AOSM AOSM [id number] Rebecca 00:00:00 00:00:00 Edward [id number] Orth ope dic Sports Medicin e 2022-04-05 2022-04-05 Outpatient [facility]_ AOSM AOSM [id number] Rebecca 00:00:00 00:00:00 Edward [id number] Orth ope dic Sports Medicin e 2022-03-29 2022-03-29 Outpatient [facility]_ AOSM AOSM [id number] Rebecca 00:00:00 00:00:00 dEward [id number] Orth ope dic Sports Medicin e 2022-02-27 2022-02-27 Outpatient [facility]_ AOSM AOSM [id number] Rebecca 00:00:00 00:00:00 Edward [id number] Orth ope dic Sports Medicin e 2022-02-23 2022-02-23 Outpatient [facility]_ AOSM AOSM [id number] Rebecca 00:00:00 00:00:00 Edward [id number] Orth ope dic Sports Medicin e 2022-01-18 2022-01-18 Outpatient [facility]_ AOSM AOSM [id number] Rebecca 00:00:00 00:00:00 Edward [id number] Orth ope dic Sports Medicin e 2021-12-12 2021-12-12 Outpatient [facility]_ AOSM AOSM [id number] Rebecca 00:00:00 00:00:00 Edward [id number] Orth ope dic Sports Medicin e 2021-12-12 2021-12-12 Outpatient [facility], AOSM AOJAN [id number] 00:00:00 00:00:00 Kevin Herrera [id number] 2021-12-12 2021-12-12 Kevin Herrera [place] - Ortho [id number] Rebecca 00:00:00 00:00:00 Marybeth Burris MD: [id number] [facility] [place] [id number] , Ph. [phone] 2021-11-01 2021-11-01 Outpatient [facility]_ AOSM AO [id number] Rebecca 00:00:00 00:00:00 Edward [id number] Orth ope dic Sports Medicin e 2021-01-11 2021-01-11 Imm/Inj Nurse, Pcp Immunization [facility] 1. [id number] Univers 08:11:27 08:21:27 Visit Tunde Ramirez PRIMARY [id number] ity of CARE [id number] Montse PIERSON [phone] [facility] 2021-01-11 2021-01-11 Outpatient Tierra RAMIREZ [facility] [id number] Univers 08:10:00 08:10:00 TUNDE [facility] 2020-07-01 2020-07-01 Outpatient Tierra CALVIN [facility] [id number] Univers 10:40:00 10:40:00 UMAIR [id number] [facility] 2020-07-01 2020-07-01 Outpatient Tierra CALVIN [facility] [id number] Univers 10:40:00 10:40:00 UMAIR [facility] 2020-06-24 2020-06-24 Outpatient Tierra CALVIN [facility] [id number] Univers 10:00:00 10:00:00 UMAIR [id number] [facility] 2020-06-03 2020-06-03 Outpatient Tierra CALVIN [facility] [id number] Univers 09:20:00 09:20:00 UMAIR [id number] [facility] 2020-06-03 2020-06-03 Outpatient Tierra CALVIN [facility] [id number] [facility] 09:20:00 09:20:00 UMAIR [facility] Results This patient has no known results.
--- NOTE | 2022-10-13 11:44 | RAD REPORT ---
EXAM DESCRIPTION: RAD - Chest Single View - 10/13/2022 11:38 am CLINICAL HISTORY: chf COMPARISON: Chest Pa And Lat (2 Views) dated 10/08/2022; Chest Pa And Lat (2 Views) dated 07/10/2022; Ch est Pa And Lat (2 Views) dated 11/28/2021; Chest Pa And Lat (2 Views) dated 01/25/2021 FINDINGS: Lines: None. Lungs: Mild diffuse prominence of the pulmonary interstitium. This is similar . Pleural: No significant pleural effusions or pneumothorax. Cardiac: Mild cardiomegaly. Mediastinum: Within normal limits. Bones: No acute fractures. Other: None IMPRESSION: No definite acute process identified. Nonspecific prominence of the pulmonary interstiti um is similar to several recent prior radiographs.
[2022-10-13] MEDS ORDERED: INSULIN -REGULAR HUMAN 50 UNIT/0.5 ML ML ONE ×2 (11:45→17:31)
[2022-10-13 14:39] LABS: Absolute Lymphocytes (CBC) 0.9 K/uL (0.7-4.9); Hematocrit 42.6 % (36.0-45.0); Lymphocytes % 30.4 % (15.3-44.8); MCV 83.1 fL (80-100); MPV 9.2 fL (7.6-11.3); RBC Red Blood Cell Count 5.13 M/uL (3.86-4.86)
[2022-10-13 14:58] LABS: Albumin 3.5 g/dL (3.4-5.0); Bilirubin Total 0.4 mg/dL (0.2-1.0); Potassium 4.1 mEq/L (3.5-5.1); Protein, Total 8.2 g/dL (6.4-8.2)
[2022-10-13] MEDS ORDERED: NA CHLORIDE 0.9% 500 ML ONE (15:20)
--- NOTE | 2022-10-13 17:16 | ER ---
Nurse's Notes [facility] Name: Daniela Degroot Age: 77 yrs Sex: Female : 1945 Arrival Date: 10/13/2022 Time: 10:11 Bed 7 Private MD: Diagnosis: Type 2 diabetes mellitus with hyperglycemia;Volume depletion, unspecified Presentation: 10/13 10:38 Chief complaint: Patient states: HIGH BGL AT HOME >400. DAY THREE OF STEROID TAPER. bp Coronavirus screen: At this time, the client does not indicate any symptoms associated with coronavirus-19. Ebola Screen: No symptoms or risks identified at this time. Initial Sepsis Screen: Does the patient meet any 2 criteria? No. Patient's initial sepsis screen is negative. Does the patient have a suspected source of infection? No. Patient's initial sepsis screen is negative. Risk Assessment: Do you want to hurt yourself or someone else? Patient reports no desire to harm self or others. Onset of symptoms is unknown. 10:38 Method Of Arrival: Wheelchair bp 10:38 Acuity: NEIL 3 bp Triage Assessment: 10:39 General: Appears distressed, Behavior is calm, cooperative, appropriate for age. Pain: bp Denies pain. EENT: No deficits noted. Neuro: Reports dizziness. Cardiovascular: No deficits noted. Respiratory: No deficits noted. GI: No signs and/or symptoms were reported involving the gastrointestinal system. : No signs and/or symptoms were reported regarding the genitourinary system. Derm: No deficits noted. Musculoskeletal: No deficits noted. Historical: - Allergies: 10:39 Codeine; bp - Home Meds: 14:19 carvedilol 12.5 mg oral tablet 2 times per day [Active]; prednisone 5 mg Oral tablet 1 ss tab daily [Active]; glimepiride 2 mg Oral tablet once [Active]; furosemide 40 mg Oral tablet daily [Active]; verapamil 240 mg Oral Capsule, ER Pellets 24 hr 1 cap daily [Active]; gabapentin 600 mg oral Tablet, Extended Release 24 hr [Active]; "tapered steroid pack" [Active]; - PMHx: 10:39 Diabetes - NIDDM; Hypertension; Congestive heart failure; bp - Immunization history:: Adult Immunizations up to date. - Social history:: Smoking status: Patient denies any tobacco usage or history of. Screenin:20 [facility] ED Fall Risk Assessment (Adult) History of falling in the last 3 months, iw including since admission. Abuse screen: Denies threats or abuse. Denies injuries from another. Nutritional screening: No deficits noted. Tuberculosis screening: No symptoms or risk factors identified. Assessment: 15:19 Reassessment: Patient appears in no apparent distress at this time. Patient and/or iw family updated on plan of care and expected duration. Pain level reassessed. Patient is alert, oriented x 3, equal unlabored respirations, skin warm/dry/pink. 17:36 Reassessment: Patient and/or family updated on plan of care and expected duration. Pain iw level reassessed. Patient is alert, oriented x 3, equal unlabored respirations, skin warm/dry/pink. Vital Signs: 10:38 BP 114 / 61; Pulse 66; Resp 16; Temp 97.6; Pulse Ox 99% ; bp 13:41 BP 119 / 66; Pulse 72; Resp 18; Pulse Ox 100% on R/A; mb9 17:36 BP 128 / 67; Pulse 70; Resp 16; Pulse Ox 98% on R/A; Pain 0/10; iw 17:36 Pain Scale: Adult iw ED Course: 10:12 Patient arrived in ED. ts1 10:28 [facility]C [facility]. snw 10:28 Jose G Quintero MD is Attending Physician. snw 10:39 Triage completed. bp 10:39 Arm band placed on. bp 11:39 Chest Single View XRAY In Process Unspecified. EDMS 13:55 Glucose, Ancillary Testing Sent. mb9 14:30 Inserted saline lock: 22 gauge in left antecubital area, using aseptic technique. iw 14:31 Mariluz Garcia, RN is Primary Nurse. iw 14:34 CMP Sent. iw 14:34 CBC with Diff Sent. iw 17:36 Patient has correct armband on for positive identification. iw 17:36 No provider procedures requiring assistance completed. Patient did not have IV access iw during this emergency room visit. Administered Medications: 11:43 Drug: Insulin Regular Human Sub-Q 5 units {Co-Signature: [email or web address] (Shelia Clements RN).} aa5 Route: Sub-Q; Site: left upper arm; 17:37 Follow up: Response: No adverse reaction; Blood sugar is lowered iw 15:15 Drug: NS 0.9% IV 500 ml Route: IV; Rate: bolus; Site: left antecubital; iw 16:50 Follow up: IV Status: Completed infusion; IV Intake: 500ml ss 17:25 Drug: Insulin Regular Human Sub-Q 5 units {Co-Signature: ss (Alba Mosley RN).} iw Route: Sub-Q; Site: right upper arm; 17:35 Follow up: Response: No adverse reaction iw Medication: 17:36 VIS not applicable for this client. iw Point of Care Testing: Blood Glucose: 10:39 Blood Glucose: 493 mg/dL; bp Ranges: Intake: 16:50 IV: 500ml; Total: 500ml. ss Outcome: 17:16 Discharge ordered by . snw 17:36 Discharged to home ambulatory, with family. iw 17:36 Condition: good 17:36 Discharge instructions given to patient, family, Instructed on discharge instructions, follow up and referral plans. Demonstrated understanding of instructions, follow-up care. 17:37 Patient left the ED. iw Signatures: Dispatcher [employer] EDMS Terri Rivera, BODY BUILDER-C BODY BUILDER-Csnw aMriluz Garcia RN RN iw Ritika Ferrari, RN RN aa5 Alba Mosley, RN RN Howard Cordoba RN Shelia Hardy, ITZ RN mb9 Milagros Emerson PAS PAS ts1 Shelia Clements RN mb9 Alba Mosley RN ss Corrections: (The following items were deleted from the chart) 14:26 14:19 Home Meds: Metformin Oral; ss 15:20 14:40 Inserted saline lock: 22 gauge in left antecubital area, using aseptic technique. iw iw
--- NOTE | 2022-10-13 17:16 | EDPHYS ---
Physician Documentation [facility] Name: Daniela Degroot Age: 77 yrs Sex: Female : 1945 Arrival Date: 10/13/2022 Time: 10:11 Bed 7 Private MD: ED Physician Jose G Quintero HPI: 10/13 11:37 This 77 yrs old Black Female presents to ER via Wheelchair with complaints of High snw Blood Sugar, Dizziness. 11:37 The patient or guardian reports hyperglycemia, that was potentially precipitated by snw steroid therapy. Onset: The symptoms/episode began/occurred acutely. Associated signs and symptoms: Pertinent positives: polyuria, near syncope, dizziness. Current symptoms: In the emergency department the patient's symptoms have improved. It is unknown whether or not the patient has had similar symptoms in the past. The patient has been recently seen by a physician: with similar presenting complaints, placed on diuretics and steroids for CHF. . Historical: - Allergies: 10:39 Codeine; bp - Home Meds: 14:19 carvedilol 12.5 mg oral tablet 2 times per day [Active]; prednisone 5 mg Oral tablet 1 ss tab daily [Active]; glimepiride 2 mg Oral tablet once [Active]; furosemide 40 mg Oral tablet daily [Active]; verapamil 240 mg Oral Capsule, ER Pellets 24 hr 1 cap daily [Active]; gabapentin 600 mg oral Tablet, Extended Release 24 hr [Active]; "tapered steroid pack" [Active]; - PMHx: 10:39 Diabetes - NIDDM; Hypertension; Congestive heart failure; bp - Immunization history:: Adult Immunizations up to date. - Social history:: Smoking status: Patient denies any tobacco usage or history of. ROS: 11:36 Eyes: Negative for injury, pain, redness, and discharge, ENT: Negative for injury, snw pain, and discharge, Neck: Negative for injury, pain, and swelling, Cardiovascular: Negative for chest pain, palpitations, and edema, Respiratory: Negative for cough, wheezing, and pleuritic chest pain, + FERGUSON Abdomen/GI: Negative for abdominal pain, nausea, vomiting, diarrhea, and constipation, Back: Negative for injury and pain, : Negative for injury, bleeding, discharge, and swelling, MS/Extremity: Negative for injury and deformity, Skin: Negative for injury, rash, and discoloration, Psych: Negative for depression, anxiety, suicide ideation, homicidal ideation, and hallucinations. 11:36 Constitutional: Positive for malaise. 11:36 Neuro: Positive for dizziness, near syncope. Exam: 11:35 Constitutional: This is a well developed, well nourished patient who is awake, alert, snw and in no acute distress. Head/Face: Normocephalic, atraumatic. Eyes: Pupils equal round and reactive to light, extra-ocular motions intact. Lids and lashes normal. Conjunctiva and sclera are non-icteric and not injected. Cornea within normal limits. Periorbital areas with no swelling, redness, or edema. ENT: Nares patent. No nasal discharge, no septal abnormalities noted. Tympanic membranes are normal and external auditory canals are clear. Oropharynx with no redness, swelling, or masses, exudates, or evidence of obstruction, uvula midline. Mucous membranes moist. Neck: Trachea midline, no thyromegaly or masses palpated, and no cervical lymphadenopathy. Supple, full range of motion without nuchal rigidity, or vertebral point tenderness. No Meningismus. Chest/axilla: Normal chest wall appearance and motion. Nontender with no deformity. No lesions are appreciated. Cardiovascular: Regular rate and rhythm with a normal S1 and S2. No gallops, murmurs, or rubs. Normal PMI, no JVD. No pulse deficits. Respiratory: Lungs have equal breath sounds bilaterally, clear to auscultation and percussion. No rales, rhonchi or wheezes noted. No increased work of breathing, no retractions or nasal flaring. Abdomen/GI: Soft, non-tender, with normal bowel sounds. No distension or tympany. No guarding or rebound. No evidence of tenderness throughout. Back: No spinal tenderness. No costovertebral tenderness. Full range of motion. Skin: Warm, dry with normal turgor. Normal color with no rashes, no lesions, and no evidence of cellulitis. MS/ Extremity: Pulses equal, no cyanosis. Neurovascular intact. Full, normal range of motion. Neuro: Awake and alert, GCS 15, oriented to person, place, time, and situation. Cranial nerves II-XII grossly intact. Motor strength 5/5 in all extremities. Sensory grossly intact. Cerebellar exam normal. Normal gait. Psych: Awake, alert, with orientation to person, place and time. Behavior, mood, and affect are within normal limits. Vital Signs: 10:38 BP 114 / 61; Pulse 66; Resp 16; Temp 97.6; Pulse Ox 99% ; bp 13:41 BP 119 / 66; Pulse 72; Resp 18; Pulse Ox 100% on R/A; mb9 17:36 BP 128 / 67; Pulse 70; Resp 16; Pulse Ox 98% on R/A; Pain 0/10; iw 17:36 Pain Scale: Adult iw MDM: 10:42 Patient medically screened. snw 11:40 Differential diagnosis: Chris's syndrome, diabetes insipidus, hyperglycemia. Data snw reviewed: vital signs, nurses notes, lab test result(s), radiologic studies. Counseling: I had a detailed discussion with the patient and/or guardian regarding: the historical points, exam findings, and any diagnostic results supporting the discharge/admit diagnosis, lab results, radiology results. 16:37 Response to treatment: the patient's symptoms have mildly improved after treatment. snw Special discussion: Based on the history and exam findings, there is no indication for further emergent testing or inpatient evaluation. I discussed with the patient/guardian the need to see the primary care provider for further evaluation of the symptoms. 10/13 10:50 Order name: Glucose, Ancillary Testing; Complete Time: 10:50 EDAR 10/13 13:49 Order name: Glucose, Ancillary Testing; Complete Time: 14:06 EDAR 10/13 13:51 Order name: Glucose, Ancillary Testing EDAR 10/13 14:08 Order name: CBC with Diff; Complete Time: 14:46 snw 10/13 14:08 Order name: CMP; Complete Time: 15:04 snw 10/13 14:48 Order name: Add On-Lab sn 10/13 14:56 Order name: Williamson Screen; Complete Time: 15:04 EDMS 10/13 17:00 Order name: Glucose, Ancillary Testing; Complete Time: 17:18 EDAR 10/13 11:05 Order name: Chest Single View XRAY; Complete Time: 11:44 snw 10/13 10:38 Order name: FSBS; Complete Time: 11:35 snw 10/13 10:42 Order name: Misc. Order: need medication list; Complete Time: 14:26 snw 10/13 11:44 Order name: Recheck Blood Sugar: At 1200; Complete Time: 13:41 snw 10/13 12:43 Order name: Recheck Vital Signs; Complete Time: 13:41 snw 10/13 14:08 Order name: Saline Lock; Complete Time: 14:34 snw 10/13 16:38 Order name: Misc. Order: ambulate pt; Complete Time: 16:50 snw 10/13 16:38 Order name: FSBS; Complete Time: 16:50 snw Administered Medications: 11:43 Drug: Insulin Regular Human Sub-Q 5 units {Co-Signature: mb9 (Shelia Clements RN).} aa5 Route: Sub-Q; Site: left upper arm; 17:37 Follow up: Response: No adverse reaction; Blood sugar is lowered iw 15:15 Drug: NS 0.9% IV 500 ml Route: IV; Rate: bolus; Site: left antecubital; iw 16:50 Follow up: IV Status: Completed infusion; IV Intake: 500ml ss 17:25 Drug: Insulin Regular Human Sub-Q 5 units {Co-Signature: ss (Alba Mosley RN).} iw Route: Sub-Q; Site: right upper arm; 17:35 Follow up: Response: No adverse reaction iw Point of Care Testing: Blood Glucose: 10:39 Blood Glucose: 493 mg/dL; bp Ranges: Critical Glucose Levels:Adult <50 mg/dl or >400 mg/dl <40 mg/dl or >180 mg/dl Disposition: 18:47 Co-signature as Attending Physician, Jose G Quintero MD I reviewed the patient's care rn provided by the Advanced Practice Provider and agree with the diagnosis and treatment plan. Disposition Summary: 10/13/22 17:16 Discharge Ordered Location: Home snw Condition: Stable snw Diagnosis - Type 2 diabetes mellitus with hyperglycemia snw - Volume depletion, unspecified snw Followup: snw - With: Emergency Department - When: As needed - Reason: Worsening of condition Followup: snw - With: Private Physician - When: 2 - 3 days - Reason: Recheck today's complaints, Continuance of care, Re-evaluation by your physician Discharge Instructions: - Discharge Summary Sheet snw - Dehydration, Elderly snw - Hyperglycemia snw - Rehydration, Elderly snw - Form - Blood Pressure Record Sheet snw Forms: - Medication Reconciliation Form snw - Thank You Letter snw - Antibiotic Education snw - Prescription Opioid Use snw Signatures: Dispatcher [employer] Terri Houser FNP-C INFORMATION TECHNOLOGY TECHNICIAN-Csnw Mariluz Garcia, RN RN iw Jose G Quintero MD MD rn Calderon, Audri, RN RN aa5 Alba Mosley, ITZ RN Howard Vergara RN RN Shelia Clementsh ITZ mb9 Alba Mosley RN ss Corrections: (The following items were deleted from the chart) 14:26 14:19 Home Meds: Metformin Oral; ss ss
[2022-10-13 17:51] VITALS: TEMP 97.6
[2022-10-13 18:03] VITALS: BP 128/67; O2SAT 98
== END 2022-10-13 17:37 | disposition home or self-care (01) ==
LOC: ER 10:11
DX: E11.65 Type 2 diabetes mellitus with hyperglycemia (principal); E86.9 Volume depletion, unspecified; I10 Essential (primary) hypertension; I50.9 Heart failure, unspecified; Z88.5 Allergy status to narcotic agent
CPT/HCPCS: 96361; 85025; 36415; 86308; 82947 ×3; 80053; 71045; 96360; 96372; 99284; J1815 ×2; J7040

== ENCOUNTER → 2023-07-24 | Day surgery (SDC) | payer OTHER ==
[2023-07-19 11:00] LABS: Absolute Basophils 0.1 K/uL (0-0.5); Absolute Eosinophils 0.3 K/uL (0-0.5); Absolute Lymphocytes (CBC) 1.4 K/uL (0.7-4.9); Absolute Monocytes 0.6 K/uL (0.1-1.3); Absolute Neutrophil 2.8 K/uL (1.8-8.0); Eosinophils % 5.4 % (0-4.4); Hematocrit 39.1 % (36.0-45.0); Hemoglobin 12.8 g/dL (12.0-15.0); Lymphocytes % 27.5 % (15.3-44.8); MCH 27.6 pg (27.0-35.0); MCHC 32.7 g/dL (32.0-36.0); MCV 84.4 fL (80-100); MPV 8.6 fL (7.6-11.3); Monocytes % 11.8 % (3.3-12.3); Neutrophils % 54.3 % (41.7-73.7); Platelets 259 thou/uL (152-406); RBC Red Blood Cell Count 4.63 M/uL (3.86-4.86); Red Cell Distribution Width 14.4 % (12.1-15.2)
--- NOTE | 2023-07-19 11:00 | RAD REPORT ---
EXAM DESCRIPTION: Clare Pichardo And Gray (2 Views)07/19/2023 10:50 am CLINICAL HISTORY: Preop for sooner surgery. Hypertension COMPARISON: 2022 FINDINGS: Hilar and mediastinal lymphadenopathy unchanged Subpleural nodularity unchanged Lungs appear clear of acute infiltrate. Heart is normal size IMPRESSION: No significant change since the prior examination
[2023-07-19 11:05] LABS: PT Prothrombin Time 10.9 SECONDS (9.5-12.5); PTT, Activated Partial Thromb 34.9 SECONDS (24.3-36.9); Protime INR 0.99
[2023-07-19 11:14] LABS: Anion Gap 7.8 mEq/L (5.0-15.0); Potassium 3.8 mEq/L (3.5-5.1)
--- NOTE | 2023-07-19 17:20 | EKG ---
Test Date: 2023-07-19 Test Time: 10:35:13 Bankman: GRAHAM MEASUREMENT RESULTS: Intervals: Rate: 74 MS: 142 QRSD: 68 QT: 426 QTc: 472 [place]: P: 77 MS: 142 QRS: -12 T: 98 INTERPRETIVE STATEMENTS: Normal sinus rhythm Inferior infarct, age undetermined Anterior infarct, age undetermined Abnormal ECG Compared to ECG 07/10/2022 14:08:43 No significant changes Electronically Signed On 07-19-23 17:19:40 CDT by Ravin Laguna
[~2023-07-24] MED LIST: FENTANYL CITR 100 MCG/2 ML ONE; KETOROLAC 30 MG/ML INJ ONE; LIDOCAINE 1% MPF 30 ML VIAL ONE; LIDOCAINE 2% MPF 5 ML VIAL ONE; MIDAZOLAM HCL 2 MG/2 ML INJ ONE; NS 0.9% VIAL 30 ML ONE; ONDANSETRON 4 MG/2 ML VIAL ONE; dexAMETHasone 10 MG/ML VIAL ONE; propofoL 200 MG/20 ML VIAL IV ONE
[2023-07-24] MEDS: NA CHLORIDE 0.9% 1,000 ML ONE (08:20)
[2023-07-24] MEDS: CEFAZOLIN SODIUM 2 GM/VIAL ONE (09:53)
[2023-07-24] MEDS: BUPIVACAINE 0.25% PF 10 ML VIAL ONE (10:25)
--- NOTE | 2023-07-24 10:42 | P.BOP ---
Preoperative diagnosis: left small finger trigger digit Postoperative diagnosis: same Primary procedure: left small finger A1 zenobia release Marker Maker: NONE,NONE Estimated blood loss: 1 cc Specimen: none Findings: see dictation Anesthesia: General Complications: None Implants: none Fluids & blood products: per anesthesia record; TT: 12 mins @ 250 mmHg Transferred to: Recovery Room Condition: Good
[2023-07-24] MEDS: HYDROMORPHONE HCL 1 MG/ML INJ ONE (11:05)
[2023-07-24 13:24] VITALS: BP 110/63; TEMP 96.9; O2SAT 100
== END ==
LOC: OR 07:49
PROVIDERS: ATTEND Orthopaedic Surgery Sports Medicine
PROC: 0LN80ZZ Release Left Hand Tendon, Open Approach (ICD-10-PCS; principal; 2023-07-24 09:15)
DX: M65.352 Trigger finger, left little finger (principal)
CPT/HCPCS: 93005; 85025; 80048; 36415; 85610; 82947 ×2; 85730; 71046; 26055; A4216; J2704; J2001 ×2; J2250; J3010; J1100; J1170; J2405; J7030

== ENCOUNTER 2024-01-10 06:52 | Day surgery (SDC) | payer OTHER ==
[2024-01-08 13:20] LABS: Absolute Eosinophils 0.3 K/uL (0-0.5); Absolute Lymphocytes (CBC) 1.5 K/uL (0.7-4.9); Absolute Monocytes 0.6 K/uL (0.1-1.3); Absolute Neutrophil 2.8 K/uL (1.8-8.0); Eosinophils % 5.1 % (0-4.4); Hematocrit 37.6 % (36.0-45.0); Lymphocytes % 28.7 % (15.3-44.8); MCH 27.2 pg (27.0-35.0); MCHC 31.9 g/dL (32.0-36.0); MCV 85.3 fL (80-100); MPV 9.4 fL (7.6-11.3); Monocytes % 11.5 % (3.3-12.3); Neutrophils % 53.7 % (41.7-73.7); Platelets 226 thou/uL (152-406); RBC Red Blood Cell Count 4.41 M/uL (3.86-4.86); Red Cell Distribution Width 14.4 % (12.1-15.2)
[2024-01-08 13:32] LABS: Anion Gap 6.9 mEq/L (5.0-15.0); PT Prothrombin Time 11.6 SECONDS (9.4-12.5); PTT, Activated Partial Thromb 32.3 SECONDS (24.3-36.9); Potassium 3.9 mEq/L (3.5-5.1); Protime INR 1.04
[2024-01-10] MEDS ORDERED: LIDOCAINE 2% MPF 5 ML VIAL ONE (07:13)
[2024-01-10] MEDS ORDERED: ONDANSETRON 4 MG/2 ML VIAL ONE (07:13)
[2024-01-10] MEDS ORDERED: propofoL 200 MG/20 ML VIAL IV ONE (07:13)
[2024-01-10] MEDS ORDERED: FENTANYL CITR 100 MCG/2 ML ONE (07:13)
[2024-01-10] MEDS: NA CHLORIDE 0.9% 1,000 ML ONE (07:25)
[2024-01-10] MEDS: CEFAZOLIN SODIUM 2 GM/VIAL ONE (08:15)
[2024-01-10] MEDS ORDERED: dexAMETHasone 4 MG/ML VIAL ONE (08:15)
[2024-01-10] MEDS: BUPIVACAINE 0.25% PF 10 ML VIAL ONE (08:42)
--- NOTE | 2024-01-10 08:51 | P.BOP ---
Preoperative diagnosis: right index finger trigger finger Postoperative diagnosis: same Primary procedure: right index finger A1 zenobia release Prescriptionist: NONE,NONE Estimated blood loss: 1 cc Specimen: none Findings: see dictation Anesthesia: General Complications: None Implants: none Fluids & blood products: per anesthesia record Transferred to: Recovery Room Condition: Good
[2024-01-10] MEDS: HYDROMORPHONE HCL 1 MG/ML INJ ONE (08:58)
[2024-01-10] MEDS: FENTANYL CITR 100 MCG/2 ML ONE (09:14)
[2024-01-10 10:22] VITALS: BP 141/64; TEMP 96.3; O2SAT 97
--- NOTE | 2024-01-15 14:33 | OP ---
Date of Procedure: 01/10/2024 Surgeon: Flex Burton MD Preoperative Diagnosis: Right index finger trigger digit. Postoperative Diagnosis: Right index finger trigger digit. Procedure Performed: Right index finger A1 zenobia release. Anesthesia: General LMA. Fluids: Per Anesthesia record. Ebl: 1 cc. Complications: None. Implants: None. Indication For Procedure: Daniela is a 78-year-old female presented to my clinic with signs and symp toms consistent with right index finger trigger digit. The patient failed conservative treatment mihai sures and had significant pain that interfered with her activities of daily living. I discussed with the patient at length risks and benefits associated with operative and nonoperative treatment measur es. She expressed understanding and elected to proceed with operative treatment. Description Of Procedure: After informed consent was obtained, the patient was identified in the pre operative holding area. The right index finger was marked. The patient was brought back to the oper ating room, transferred to the operating table in supine fashion, placed under general LMA anesthesia . The right upper extremity was then prepped and draped in usual sterile fashion. A time-out was in itiated. Correct patient and procedure were confirmed and identified. The patient did receive preop erative prophylactic antibiotics. The right upper extremity was exsanguinated using an Esmarch and t ourniquet was inflated at 250 mmHg. An approximately 1.5 cm longitudinal incision was made over the index finger A1 zenobia. Dissection was taken down and flexor tendon sheath, which was identified. A 15 blade was then used to incise the tendon sheath and there was significant tenosynovial fluid expr essed at that time. A portion of the flexor tendon sheath was excised to minimize risk for recurrenc e. Tendon was brought out to the incision with full excursion of the tendon without triggering noted . The wound was then irrigated thoroughly with normal saline. Skin was approximated using a 5-0 Pro karolina. Sterile dressings were applied. The patient was awakened and transferred to PACU in stable co ndition. Postoperative Plan: The patient will be nonweightbearing to the right upper extremity. The patient will follow up in 10 days for a wound check and suture removal. CV/MODL Voice ID: [id number] Report ID: [id number]
== END 2024-01-10 10:10 | disposition home or self-care (01) ==
LOC: OR 06:52
PROVIDERS: ATTEND Orthopaedic Surgery Sports Medicine
PROC: 0LN70ZZ Release Right Hand Tendon, Open Approach (ICD-10-PCS; principal; 2024-01-10 08:00)
DX: M65.321 Trigger finger, right index finger (principal); I10 Essential (primary) hypertension; E11.9 Type 2 diabetes mellitus without complications; E78.00 Pure hypercholesterolemia, unspecified
CPT/HCPCS: 85025; 80048; 36415; 85610; 82947 ×2; 85730; 26055; J2704; J1100; J2001; J3010 ×2; J1170; J2405; J7030

== ENCOUNTER 2024-06-11 13:16 | Observation (INO) | payer OTHER ==
--- OUTSIDE RECORDS SUMMARY | 2024-06-11 13:19 | XMS REPORT | Clinical Summary ---
Author Name Unknown Organization [facility] Address [address] [place] [address] Care Team Providers Care Wind Energy Engineer Name Role Phone Constantine Holcomb MD Primary Care Provider [phone] Pcp, No Unavailable Panda Garcia Unavailable Teresa Street Unavailable Allergies Active Allergy Reactions Criticality Noted Date Comments Codeine 05/28/2024 Medications atorvastatin (LIPITOR) 40 mg tablet Take 1 tablet (40 mg) by mouth daily. Active Linzess 72 mcg cap Take 72 mcg/day by mouth daily. 4 Active losartan (COZAAR) 50 mg tablet Take 1 tablet (50 mg) by mouth daily. 4 Active Mounjaro 15 mg/0.5 mL injection Inject 15 mg under the skin once a week. Wednesdays 4 Active estradiol (ESTRACE) 0.1 mg/g (0.01%) vaginal cream Insert 1 g into the vagina 3 (three) times a week Saturday, Saturday and Saturday. Active carvedilol (COREG) 12.5 mg tablet Take 1 tablet (12.5 mg) by mouth twice daily. 9 Active furosemide (LASIX) 40 mg tablet Take 1 tablet (40 mg) by mouth daily. Active Lantus Solostar U-100 Insulin 100 unit/mL (3 mL) insulin pen Inject 30 Units under the skin every morning. 4 Active verapamil (CALAN-SR) 240 mg CR tablet Take 1 tablet (240 mg) by mouth daily. 7 Active acetaminophen (TYLENOL) 500 mg tablet Take 2 tablets (1,000 mg) by mouth every 6 (six) hours as needed for mild pain or moderate pain. Active Active Problems Problem Noted Date Diagnosed Date Type 2 diabetes mellitus 06/04/2024 Malignant neoplasm of overlapping sites of bladd er 05/20/2024 Encounters Date Type Department Care Team Description 06/10/2024 Documentation [facility] - Genitourinary Oncology [address] [facility] [address] [place] [address] Mckenzie Morejon RN 06/10/2024 Orders Only [facility] - Oncology [address] [place] [address], 7th [place] [address] Bita Syed PA 06/09/2024 Orders Only Interventional Radiology [address] [place] [address], 4th [place] [address] Lorraine Hernandez PA-C Encounter for other preprocedural examination (Primary Dx) 06/09/2024 Orders Only [facility] [address] [place] [address] Marc Gudino PA 06/05/2024 Telephone [facility] - Oncology [address] [place] [address], 7th [place] [address] Erik Santos APRN 06/05/2024 Telephone [facility] - Oncology [address] [place] [address], [facility] [place] [address] Marina Sebastian RN 06/04/2024 Orders Only [facility] - Oncology [address] [place] [address], [facility] [place] [address] Bita Syed PA Malignant neoplasm of overlapping sites of bladder (Primary Dx) 06/02/2024 5:00 PM COLLAR SHAPER OPERATOR Telemedicine [facility] - Oncology [address] [place] [address] Constantine Holcomb MD Malignant neoplasm of overlapping sites of bladder 06/01/2024 Orders Only [facility] - Oncology [address] [place] [address] Bita Syed PA Malignant neoplasm of overlapping sites of bladder (Primary Dx) 05/29/2024 12:30 PM COLLAR SHAPER OPERATOR Ancillary Procedure [address] [address] Erik Santos APRN 05/29/2024 10:00 AM COLLAR SHAPER OPERATOR Ancillary Procedure [address] [address] Erik Santos APRN Malignant neoplasm of overlapping sites of bladder 05/29/2024 6:50 AM COLLAR SHAPER OPERATOR Ancillary Procedure [address] [address] Erik Santos APRN Malignant neoplasm of overlapping sites of bladder 05/29/2024 Travel 05/26/2024 11:00 AM COLLAR SHAPER OPERATOR Telemedicine [facility] [place] - Oncology [address] [place] [address] Constantine Holcomb MD Malignant neoplasm of overlapping sites of bladder (Primary Dx) 05/22/2024 9:30 AM COLLAR SHAPER OPERATOR NPR [facility] PATIENT ACCESS Constantine Holcomb MD 05/20/2024 Orders Only [facility] - Oncology [address] [place] [address], [address] [place] [id number] Erik Santos APRN Malignant neoplasm of overlapping sites of bladder (Primary Dx) 05/08/2024 Lab Requisition [facility] Jun Mendoza MD Eyzaguirre, Eduardo Javier, MD after 06/12/2023 Surgical History Surgery Date Site/Laterality Comments HYSTERECTOMY Medical History Medical History Date Comments Essential (primary) hypertension Mixed hyperlipidemia Type 2 diabetes mellitus without complication Social History Tobacco Use Types Packs/Day Years Used Date Smoking Tobacco: Never Comments Unknown Sex and Gender Information Value Date Recorded Sex Assigned at Female 02/27/2024 4:22 PM CDT Legal Sex Female 11:04 AM CDT Gender Identity Female 02/27/2024 4:22 PM CDT Sexual Orientation Straight 02/27/2024 4: 22 PM CDT Travel History Travel Start Travel End [place] 05/18/2024 05/23/2024 Obstetrics History Last Filed Vital Signs Vital Sign Reading Time Taken Comments Blood Pressure 119/79 05/29/2024 9:15 AM COLLAR SHAPER OPERATOR Pulse 68 05/29/2024 9:15 AM COLLAR SHAPER OPERATOR Temperature - - Respiratory Rate 16 05/29/2024 9:15 AM COLLAR SHAPER OPERATOR Oxygen Saturation 99% 05/29/2024 9:15 AM COLLAR SHAPER OPERATOR Inhaled Oxygen Concentration - - Weight 88.6 kg (195 lb 5.2 oz) 05/29/2024 6:38 A M COLLAR SHAPER OPERATOR Height 155.5 cm (5' 1.22") 05/29/2024 6:38 AM CS T Body Mass Index 36.64 05/29/2024 6:38 AM COLLAR SHAPER OPERATOR Plan of Treatment Upcoming Encounters Date Type Department Care Team (Late st Contact Info) Description 06/22/2024 10:00 AM COLLAR SHAPER OPERATOR Appointment Interventional Radiology [address] [place] [address], 4th [place] [address] Constantine Holcomb MD [facility] [place] [address] [email or web address] 06/22/2024 11:00 AM COLLAR SHAPER OPERATOR Appointment [facility] [address] [place] [id number] Lorraine Hernandez PA-C [address] [place] [address] [email or web address] 06/22/2024 12:00 PM COLLAR SHAPER OPERATOR Appointment Diagnostic Center [address] [facility], 2nd [place] [address] Lorraine Hernandez PA-C [address] [place] [address] [email or web address] 06/23/2024 10:30 AM COLLAR SHAPER OPERATOR Appointment Interventional Radiology [address] [facility], 4th [place] [address] Bita Syed PA [address] [place], [place] [id number] [email or web address] Health Maintenance Due Date Last Done Comments Pneumococcal Vaccine: 50+ Ye ars (1 of 2 - PCV) 1964 COVID-19 Vaccine ( season) 2024 01/11/2021, 07/01/2020, 06/03/2020 Influenza Vaccine (#1) 2024 Procedures Procedure Name Priority Date/Time Associated Diagnosis Comments NM BONE SCAN WHOLE BODY Routine 05/29/2024 10:14 AM COLLAR SHAPER OPERATOR Malignant neoplasm of overlapping sites of bladder CT CHEST ABDOMEN PELVIS W WO CONTRAST UROGRAM Routine 05/29/2024 9:03 AM COLLAR SHAPER OPERATOR Malignant neoplasm of overlapping sites of bladder PATHOLOGY OUTSIDE INTERPRETATION Routine 04/14/2024 after 06/12/2023 Results * NM Bone Scan Whole Body (05/29/2024 10:14 AM COLLAR SHAPER OPERATOR) Anatomical Region Laterality Modality Whole Body Nuclear Medicine 05/29/2024 10:1 8 AM COLLAR SHAPER OPERATOR Impressions 05/29/2024 10:22 AM COLLAR SHAPER OPERATOR No evidence suspicious for bone metastasis. ACTIONABLE ITEMS/RECOMMENDATIONS*: None. *An Actionable Finding is a finding that may be unrelated to the original reason for imaging but potentially actionable, meaning further investigation may be necessary. The Actionable Findings Vigilance Unit (AFVU) assists medical providers with responding to additional radiologic findings that are unexpected and potentially actionable. Narrative 05/29/2024 10:22 AM COLLAR SHAPER OPERATOR FULL RESULT: Examination: Whole-Body Bone Scan, 05/29/2024 10:14 AM Clinical History: Bladder cancer Indication: Initial staging/evaluation Comparison: Not applicable Technique: Following the intravenous administration of 21.3 mCi of technetium- 99m MDP, anterior and posterior delayed whole body planar images were acquired. Spot lateral images of the chest were also obtained. Findings: Focal uptake involving the right anterior sixth rib near the costochondral junction appears to correlate with a healing callus on contemporaneous CT and is probably posttraumatic. There is an additional subtle focal area of uptake in the lower thoracic spine at the approximate T9/T10 level, also correlating with degenerative changes on contemporaneous CT, considered degenerative. Overall, no suspicious focal uptake in the skeleton to suggest bone metastasis. Probable benign hyperostosis of the skull. Right knee replacement related changes. Additional scattered degenerative changes including the shoulders, sternum, hips, left knee, and ankles/feet. Procedure Note Noramn Pelayo MD - 05/29/2024 FULL RESULT: Examination: Whole-Body Bone Scan, 05/29/2024 10:14 AM Clinical History: Bladder cancer Indication: Initial staging/evaluation Comparison: Not applicable Technique: Following the intravenous administration of 21.3 mCi oftechnetium-99m MDP, anterior and posterior delayed whole body planarimages were acquired. Spot lateral images of the chest were alsoobtained. Findings: Focal uptake involving the right anterior sixth rib near thecostochondral junction appears to correlate with a healing callus oncontemporaneous CT and is probably posttraumatic. There is an additionalsubtle focal area of uptake in the lower thoracic spine at the approximateT9/T10 level, also correlating with degenerative changes oncontemporaneous CT, considered degenerative. Overall, no suspicious focaluptake in the skeleton to suggest bone metastasis. Probable benignhyperostosis of the skull. Right knee replacement related changes.Additional scattered degenerative changes including the shoulders,sternum, hips, left knee, and ankles/feet. IMPRESSION: No evidence suspicious for bone metastasis. ACTIONABLE ITEMS/RECOMMENDATIONS*: None. *An Actionable Finding is a finding that may be unrelated to the originalreason for imaging but potentially actionable, meaning furtherinvestigation may be necessary. The Actionable Findings Vigilance Unit(AFVU) assists medical providers with responding to additional radiologicfindings that are unexpected and potentially actionable. Erik Santos SANDBLASTING SUPERVISOR IMG NM ORDERABLES Final Resu lt * CT Chest Abdomen Pelvis with and without Contrast Urogram (05/29/2024 9:03 AM COLLAR SHAPER OPERATOR) Anatomical Region Laterality Modality Chest, Abdomen, Pelvis Computed Tomography 05/29/2024 11:2 4 AM COLLAR SHAPER OPERATOR Impressions 05/29/2024 11:41 AM COLLAR SHAPER OPERATOR 1. Diffuse bladder wall irregularity is concerning for residual tumor 2. Right renal lesion concerning for renal cell carcinoma 3. Mediastinal and hilar adenopathy 4. Pulmonary parenchymal and pleural-based lesions concerning for metastatic disease ACTIONABLE ITEMS/RECOMMENDATIONS*: None. *An Actionable Finding is a finding that may be unrelated to the original reason for imaging but potentially actionable, meaning further investigation may be necessary. The Actionable Findings Vigilance Unit (AFVU) assists medical providers with responding to additional radiologic findings that are unexpected and potentially actionable. Narrative 05/29/2024 11:41 AM COLLAR SHAPER OPERATOR FULL RESULT: Examination: CT CHEST ABDOMEN PELVIS W WO CONTRAST UROGRAM on 05/29/2024 9:03 AM. Clinical History: Malignant neoplasm of overlapping sites of bladder. Indication: staging for mUC. Comparison: None. Technique: CT CHEST ABDOMEN PELVIS W WO CONTRAST UROGRAM. Findings: CHEST: Lungs and Pleura: There are bilateral parenchymal and pleural-based pulmonary nodules concerning for metastatic disease. Examples include a 1.6 cm pleural-based nodule in the right upper lobe on series 11 image 32 and a 0.7 cm left lower lobe nodule on series 11 image 65. No pleural effusion. Cardiomediastinum: Coronary arteries are atherosclerotic Lymph nodes: Mediastinal and hilar adenopathy is present. Tile Roofer nodes include a 1.8 cm prevascular node on series 10 image 29 and a 1.4 cm right infrahilar node on image 53 ABDOMEN AND PELVIS: Hepatobiliary: The liver contains a subcentimeter cyst. No biliary dilatation. The gallbladder contains some sludge and a stone but there is no cholecystitis Spleen: No splenomegaly. Pancreas: No mass or ductal dilatation. Adrenal Glands: Both adrenals have a hyperplastic appearance Kidneys, Ureters, Bladder: No hydronephrosis. Bilateral renal cysts are present. Some are hyperdense consistent with hemorrhagic/proteinaceous cysts. There is a 1.4 cm enhancing mass in the right anterior interpolar region on series 10 image 294 concerning for renal cell carcinoma. 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 The bladder wall is diffusely thickened and irregular concerning for underlying tumor. Gastrointestinal Tract: No obstruction. Pelvic Organs: A unilocular 6.1 cm right adnexal cyst is on image 217. There is no enhancing component to suggest malignancy. Peritoneum/Retroperitoneum: No ascites. Lymph Nodes: No lymphadenopathy. MUSCULOSKELETAL: No suspicious skeletal lesion. Procedure Note Mary Charles MD - 05/29/2024 FULL RESULT: Examination: CT CHEST ABDOMEN PELVIS W WO CONTRAST UROGRAM on :03 AM. Clinical History: Malignant neoplasm of overlapping sites of bladder. Indication: staging for mUC. Comparison: None. Technique: CT CHEST ABDOMEN PELVIS W WO CONTRAST UROGRAM. Findings: CHEST: Lungs and Pleura: There are bilateral parenchymal and pleural-basedpulmonary nodules concerning for metastatic disease. Examples include a1.6 cm pleural-based nodule in the right upper lobe on series 11 image 32and a 0.7 cm left lower lobe nodule on series 11 image 65. No pleuraleffusion. Cardiomediastinum: Coronary arteries are atherosclerotic Lymph nodes: Mediastinal and hilar adenopathy is present. Representativenodes include a 1.8 cm prevascular node on series 10 image 29 and a 1.4 cmright infrahilar node on image 53 ABDOMEN AND PELVIS: Hepatobiliary: The liver contains a subcentimeter cyst. No biliarydilatation. The gallbladder contains some sludge and a stone but there isno cholecystitis Spleen: No splenomegaly. Pancreas: No mass or ductal dilatation. Adrenal Glands: Both adrenals have a hyperplastic appearance Kidneys, Ureters, Bladder: No hydronephrosis. Bilateral renal cysts arepresent. Some are hyperdense consistent with hemorrhagic/proteinaceouscysts. There is a 1.4 cm enhancing mass in the right anterior interpolarregion on series 10 image 294 concerning for renal cell carcinoma. 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 The bladder wall is diffusely thickened and irregular concerning forunderlying tumor. Gastrointestinal Tract: No obstruction. Pelvic Organs: A unilocular 6.1 cm right adnexal cyst is on image 217.There is no enhancing component to suggest malignancy. Peritoneum/Retroperitoneum: No ascites. Lymph Nodes: No lymphadenopathy. MUSCULOSKELETAL: No suspicious skeletal lesion. IMPRESSION: 1. Diffuse bladder wall irregularity is concerning for residual tumor 2. Right renal lesion concerning for renal cell carcinoma 3. Mediastinal and hilar adenopathy 4. Pulmonary parenchymal and pleural-based lesions concerning formetastatic disease ACTIONABLE ITEMS/RECOMMENDATIONS*: None. *An Actionable Finding is a finding that may be unrelated to the originalreason for imaging but potentially actionable, meaning furtherinvestigation may be necessary. The Actionable Findings Vigilance Unit(AFVU) assists medical providers with responding to additional radiologicfindings that are unexpected and potentially actionable. Erik Santos APRN [facility] [place]ABLES Final Resu lt * Pathology Outside Interpretation (04/14/2024) Materials Received Accession#, Stained, Block, Unstained Collected Received A. [id number], 3 SS, 0 BLOCKS, 0 USS 04/14/2024 05/08/2024 05/11/2024 3:54 PM COLLAR SHAPER OPERATOR [facility] Diagnosis Outside ([id number], 3 SS, A1-1 - A3-1, 0 BLOCKS, 0 USS, collected on 04/14/2024) designated as urinary bladder transurethral resection (TURBT): PAPILLARY UROTHELIAL CARCINOMA, HIGH GRADE, SUSPICIOUS FOR FOCAL, SUPERFICIAL INVASION INTO THE LAMINA PROPRIA. Muscularis propria is present. Lymphovascular invasion is not identified. KS/CORNELIO 05/11/2024 3:54 PM COLLAR SHAPER OPERATOR [facility] Biomarker Block(s) Block for biomarker testing: A1 Normal block: N/A 05/11/2024 3:54 PM COLLAR SHAPER OPERATOR [facility] Disclaimer "Some tests reported here may have been developed and performance characteristics determined by [facility] Pathology and Laboratory Medicine. These tests have not been specifically cleared or approved by the U.S. Food and Drug Administration. If applicable, controls were reviewed and showed appropriate reactivity." 05/11/2024 3:54 PM COLLAR SHAPER OPERATOR [facility] Tissue 04/14/2024 05/08/2024 2:2 2 PM COLLAR SHAPER OPERATOR us Arslan Bassett MD LAB PATHOLOGY ORDER VI Final Result [facility] [id number] [place] [address], [place] after 06/12/2023 Insurance [id number] [place] [address] MEDICARE ADVANTAGE MEDICARE ADVANTAGE Care Teams Wind Energy Engineer Relationship Specialty Start Date End Date Constantine Holcomb MD [address] [place] [address] [email or web address] PCP - General Genitourinary Oncology 03/31/24 PcpDonna PCP - External Primary Care Provider 02/20/24 03/30/24 Panda Garcia [email or web address] PCP - External Referring Urology 03/31/[address] [place] [phone] [email or web address] PCP - External Primary Care Provider Nurse Practitioner 03/31/24
[2024-06-11 13:52] LABS: Absolute Eosinophils 0.2 K/uL (0-0.5); Absolute Lymphocytes (CBC) 1.1 K/uL (0.7-4.9); Absolute Monocytes 0.6 K/uL (0.1-1.3); Absolute Neutrophil 2.5 K/uL (1.8-8.0); Basophils % 0.7 % (0-1.3); Eosinophils % 5.2 % (0-4.4); Hematocrit 34.5 % (36.0-45.0); Hemoglobin 11.4 g/dL (12.0-15.0); Lymphocytes % 24.4 % (15.3-44.8); MCH 28.5 pg (27.0-35.0); MCHC 33.1 g/dL (32.0-36.0); MCV 85.9 fL (80-100); Neutrophils % 56.7 % (41.7-73.7); Nucleated Red Blood Cells % 0.1 % (0-0); Platelets 197 thou/uL (152-406); RBC Red Blood Cell Count 4.01 M/uL (3.86-4.86); Red Cell Distribution Width 13.2 % (12.1-15.2)
[2024-06-11 14:01] LABS: Protime INR 1.14
[2024-06-11 14:12] LABS: ALT/SGPT 18 U/L (13-56); AST/SGOT 11 U/L (15-37); Albumin 2.9 g/dL (3.4-5.0); Albumin/Globulin Ratio 0.8 (1.1-1.8); Alkaline Phosphatase 63 U/L (45-117); Anion Gap 8.3 mEq/L (5.0-15.0); BUN Blood Urea Nitrogen 14 mg/dL (7-18); Bicarbonate 30 mEq/L (21-32); Bilirubin Total 0.4 mg/dL (0.2-1.0); Globulin 3.7 g/dL (2.3-3.5); Glomerular Filtration Rate 36 ml/min (=/>90); Glucose Level 270 mg/dL (74-106); Magnesium 1.8 mg/dL (1.6-2.4); Potassium 4.3 mEq/L (3.5-5.1); Protein, Total 6.6 g/dL (6.4-8.2); Sodium Level 138 mEq/L (136-145); Troponin High Sensitivity 4.8 pg/mL (<58.9)
[2024-06-11 14:20] LABS: Bilirubin Direct < 0.2 mg/dL (0-0.2); Bilirubin Indirect, Calculated 0.2 mg/dL (0.2-0.8)
--- NOTE | 2024-06-11 16:25 | RAD REPORT ---
EXAMINATION: ONE VIEW CHEST XR CLINICAL INDICATION: Female, 79 years old.,near syncope TECHNIQUE: Frontal chest projection is submitted. Examination is limited by patient positioning and t echnique. COMPARISON: 07/19/2023 FINDINGS: Progressive central interstitial prominence and hazy opacities. No pneumothorax or sizable effusion. The heart is moderately enlarged in size. Mediastinal contours are unremarkable. IMPRESSION: Progressive central interstitial prominence and hazy opacities, could reflect pulmonary edema.
--- NOTE | 2024-06-11 16:55 | ER ---
Nurse's Notes [facility] Name: Daniela Degroot Age: 79 yrs Sex: Female : 1945 Arrival Date: 06/11/2024 Time: 13:16 Bed 24 Private MD: Diagnosis: Syncope Near;Anemia, unspecified Presentation: 06/11 13:20 Chief complaint: EMS states: toned out to patient home for dizziness and near syncope. ld1 EMS reports BP 80/40 upon arrival to PT home. Coronavirus screen: At this time, the client does not indicate any symptoms associated with coronavirus-19. Ebola Screen: No symptoms or risks identified at this time. Initial Sepsis Screen: Does the patient meet any 2 criteria? No. Patient's initial sepsis screen is negative. Does the patient have a suspected source of infection? No. Patient's initial sepsis screen is negative. Risk Assessment: Do you want to hurt yourself or someone else? Patient reports no desire to harm self or others. Onset of symptoms was June 11, 2024. 13:20 Method Of Arrival: EMS: [facility] ld1 13:20 Acuity: NEIL 3 ld1 Triage Assessment: 13:22 General: Appears in no apparent distress. comfortable, Behavior is calm, cooperative, ld1 appropriate for age. Pain: Denies pain. EENT: No signs and/or symptoms were reported regarding the EENT system. Neuro: Level of Consciousness is awake, alert, obeys commands, Oriented to person, place, time, situation. Neuro: Reports dizziness. Cardiovascular: Capillary refill < 3 seconds Patient's skin is warm and dry. Respiratory: Airway is patent Respiratory effort is even, unlabored. GI: Abdomen is round non-distended. : No signs and/or symptoms were reported regarding the genitourinary system. Derm: No signs and/or symptoms reported regarding the dermatologic system. Musculoskeletal: No signs and/or symptoms reported regarding the musculoskeletal system. Historical: - Allergies: 13:20 Codeine; ld1 - PMHx: 13:20 Congestive heart failure; Diabetes - NIDDM; Hypertension; Bladder/Kidney Cancer; ld1 - Immunization history:: Adult Immunizations up to date. - Infectious Disease History:: Denies. - Social history:: Smoking status: Patient denies any tobacco usage or history of. Screenin:26 [facility] ED Fall Risk Assessment (Adult) History of falling in the last 3 months, ld1 including since admission No falls in past 3 months (0 pts) Confusion or Disorientation No (0 pts) Intoxicated or Sedated No (0 pts) Impaired Gait No (0 pts) Mobility Assist Device Used No (0 pt) Altered Elimination No (0 pt) Score/Fall Risk Level 0 - 2 = Low Risk Oriented to surroundings, Hourly rounding (assess needs \T\ fall precautionary measures) done. Abuse screen: Denies threats or abuse. Denies injuries from another. Nutritional screening: No deficits noted. Tuberculosis screening: No symptoms or risk factors identified. Assessment: 13:26 Reassessment: See triage assessment. ld1 Vital Signs: 13:20 BP 104 / 54; Pulse 57; Resp 18; Pulse Ox 97% on R/A; Weight 88 kg; Height 5 ft. 2 in. ; ld1 Pain 0/10; 13:26 BP 110 / 90; Pulse 57; Resp 18; Pulse Ox 99% on R/A; ld1 14:53 BP 131 / 69; Pulse 61; Resp 18; Pulse Ox 100% on R/A; ld1 15:54 BP 130 / 65; Pulse 73; Resp 18; Pulse Ox 96% on R/A; ld1 13:20 Body Mass Index 35.48 (88.00 kg, 157.48 cm) ld1 13:20 Pain Scale: Adult ld1 ED Course: 13:19 Patient arrived in ED. ko1 13:20 Emilie Hayes, RN is Primary Nurse. ld1 13:22 Triage completed. ld1 13:22 Arm band placed on right wrist. ld1 13:24 Perfecto Hayes DO is Attending Physician. ms3 13:26 Patient has correct armband on for positive identification. Placed in gown. Bed in low ld1 position. Call light in reach. Side rails up X2. school lunch monitor on. Pulse ox on. NIBP on. Door closed. Noise minimized. Warm blanket given. 13:26 No provider procedures requiring assistance completed. Maintain EMS IV. Dressing ld1 intact. Good blood return noted. Site clean \T\ dry. Gauge \T\ site: 20G LAC. 15:43 XRAY Chest (1 view) In Process Unspecified. EDMS 16:01 Provided Education on: labs, meds. ko1 16:54 Claudia Guzmán MD is Hospitalizing Provider. ms3 19:00 Patient admitted, IV remains in place. al5 Administered Medications: No medications were administered Medication: 13:26 VIS not applicable for this client. ld1 Outcome: 16:54 Decision to Hospitalize by Provider. ms3 19:00 Admitted to ER Hold. Please see [facility] for further documentation. al5 19:00 Condition: stable 19:00 Instructed on the need for admit, 06/12 13:40 Patient left the ED. jl7 Signatures: Dispatcher [employer] EDMS Sid Baker RN RN jl7 Perfecto Hayes DO DO ms3 Emilie Hayes RN RN ld1 Courtney Cramer RN RN ko1 Laverne Alvarez RN RN al5 Corrections: (The following items were deleted from the chart) 06/11 13:20 13:20 PMHx: Cancer in situ of urinary bladder; ld1 ld1
--- NOTE | 2024-06-11 16:55 | EDPHYS ---
Physician Documentation [facility] Name: Daniela Degroot Age: 79 yrs Sex: Female : 1945 Arrival Date: 06/11/2024 Time: 13:16 Bed 24 Private MD: ED Physician Perfecto Hayes HPI: 06/11 14:01 This 79 yrs old Black Female presents to ER via EMS with complaints of Blood Pressure ms3 Problem. 14:01 79-year-old female past medical history of congestive heart failure, diabetes, ms3 hypertension, stage IV bladder cancer presents to the emergency department via [facility] for hypotension. Patient states she ate lunch and was walking to throw away her plate when she became lightheaded causing her to sit down. On EMS arrival patient's blood pressure was found to be 80/40. 500 mL of lactated Ringer's were administered increasing patient's blood pressure to 114/60. Patient states after receiving IV fluids her symptoms resolved. Patient endorses shortness of breath, headache. Patient denies nausea or vomiting.. Historical: - Allergies: 13:20 Codeine; ld1 - PMHx: 13:20 Congestive heart failure; Diabetes - NIDDM; Hypertension; Bladder/Kidney Cancer; ld1 - Immunization history:: Adult Immunizations up to date. - Infectious Disease History:: Denies. - Social history:: Smoking status: Patient denies any tobacco usage or history of. ROS: 14:01 Constitutional: Negative for fever, and chills. Cardiovascular: Negative for chest ms3 pain, and palpitations. 14:01 Abdomen/GI: Negative for abdominal pain, nausea, vomiting, diarrhea, and constipation, 14:01 Respiratory: Positive for shortness of breath, 14:01 Neuro: Positive for headache, Exam: 14:01 Constitutional: This is a well developed, well nourished patient who is awake, alert, ms3 and in no acute distress. Cardiovascular: Regular rate and rhythm with a normal S1 and S2. No gallops, murmurs, or rubs. Normal PMI, no JVD. No pulse deficits. Respiratory: Lungs have equal breath sounds bilaterally, clear to auscultation and percussion. No rales, rhonchi or wheezes noted. No increased work of breathing, no retractions or nasal flaring. Abdomen/GI: Soft, non-tender, with normal bowel sounds. No distension or tympany. No guarding or rebound. No evidence of tenderness throughout. Skin: Warm, dry with normal turgor. Normal color with no rashes, no lesions, and no evidence of cellulitis. 14:06 ECG was reviewed by the Attending Physician. ms3 Vital Signs: 13:20 BP 104 / 54; Pulse 57; Resp 18; Pulse Ox 97% on R/A; Weight 88 kg; Height 5 ft. 2 in. ; ld1 Pain 0/10; 13:26 BP 110 / 90; Pulse 57; Resp 18; Pulse Ox 99% on R/A; ld1 14:53 BP 131 / 69; Pulse 61; Resp 18; Pulse Ox 100% on R/A; ld1 15:54 BP 130 / 65; Pulse 73; Resp 18; Pulse Ox 96% on R/A; ld1 13:20 Body Mass Index 35.48 (88.00 kg, 157.48 cm) ld1 13:20 Pain Scale: Adult ld1 MDM: 13:31 Medical Screening Exam initiated ms3 14:01 Differential Diagnosis: cerebrovascular accident, drug effect, Hypotension versus ms3 dehydration. 17:26 Data reviewed: vital signs, nurses notes, lab test result(s), EKG, radiologic studies, ms3 and as a result, I will admit patient. Consideration of Admission/Observation Patient was admitted/placed on observation. Management of patient was discussed with the following: Hospitalist: . Independent interpretation of the following test(s) in the Emergency Department EKG: See my EKG interpretation above. Historians other than the Patient: EMS: [facility]. Counseling: I had a detailed discussion with the patient and/or guardian regarding the historical points, exam findings, and any diagnostic results supporting the discharge/admit diagnosis, lab results, radiology results, the need for further work-up and treatment in the hospital. ED course: Discussed case with hospitalist group. Discussed observation with patient. Patient understands agrees with plan. All questions were answered.. 06/11 13:32 Order name: Basic Metabolic Panel; Complete Time: 14:59 ms3 06/11 13:32 Order name: CBC with Diff; Complete Time: 14:09 ms3 06/11 13:32 Order name: LFT's; Complete Time: 14:59 ms3 06/11 13:32 Order name: Magnesium; Complete Time: 14:59 ms3 06/11 13:32 Order name: PT-INR; Complete Time: 14:09 ms3 06/11 13:32 Order name: Troponin HS; Complete Time: 14:59 ms3 06/11 18:50 Order name: Urinalysis w/ reflexes EDMS 06/11 18:50 Order name: CBC with Automated Diff EDMS 06/11 18:50 Order name: CBC with Automated Diff EDMS 06/11 18:50 Order name: Comprehensive Metabolic Panel EDMS 06/11 18:50 Order name: Comprehensive Metabolic Panel EDMS 06/11 18:50 Order name: Magnesium EDMS 06/11 18:50 Order name: Magnesium EDMS 06/11 18:50 Order name: NT PRO-BNP EDMS 06/11 18:50 Order name: NT PRO-BNP EDMS 06/11 18:50 Order name: Troponin High Sensitivity EDMS 06/11 18:50 Order name: Troponin High Sensitivity EDMS 06/11 18:50 Order name: Troponin High Sensitivity EDMS 06/11 18:50 Order name: Troponin High Sensitivity EDMS 06/11 23:45 Order name: Glucose, Ancillary Testing EDMS 06/12 05:07 Order name: Hemoglobin A1c EDMS 06/12 07:55 Order name: Glucose, Ancillary Testing EDMS 06/12 11:35 Order name: Glucose, Ancillary Testing EDMS 06/11 13:32 Order name: XRAY Chest (1 view); Complete Time: 16:41 ms3 06/11 18:52 Order name: ERT ORTHOSTATIC V/S EDMS 06/11 18:52 Order name: ERT ORTHOSTATIC V/S EDMS 06/12 10:52 Order name: CT EDMS 06/11 13:32 Order name: EKG; Complete Time: 13:33 ms3 06/11 18:44 Order name: CONS Physician Consult EDMS 06/11 18:52 Order name: Physical Therapy Consult EDMS 06/11 13:32 Order name: Cardiac monitoring; Complete Time: 13:45 ms3 06/11 13:32 Order name: EKG - Nurse/Tech; Complete Time: 13:45 ms3 06/11 13:32 Order name: IV Saline Lock; Complete Time: 13:45 ms3 06/11 13:32 Order name: Labs collected and sent; Complete Time: 13:45 ms3 06/11 13:32 Order name: O2 Per Protocol; Complete Time: 13:45 ms3 06/11 13:32 Order name: O2 Sat Monitoring; Complete Time: 13:45 ms3 EC:06 Rate is 56 beats/min. Rhythm is regular. Left axis deviation noted. NJ interval is ms3 normal. QRS interval is normal. Clinical impression: Sinus bradycardia. Interpreted by me. Reviewed by me. Administered Medications: No medications were administered Disposition Summary: 06/11/24 16:54 Hospitalization Ordered Notes: Hospitalization Status: Observation ms3 Provider: Claudia Guzmán ms3 Condition: Stable ms3 Problem: new ms3 Symptoms: are unchanged ms3 Bed/Room Type: Standard ms3 Location: [facility] ER HOLD(06/12/24 04:11) [facility] Room Assignment: ERHOLD-(06/12/24 04:11) [facility] Diagnosis - Syncope Near ms3 - Anemia, unspecified ms3 Forms: - Medication Reconciliation Form ms3 - SBAR form ms3 - Leadership Thank You Letter ms3 Signatures: Dispatcher [employer] EDMS Perfecto Hayes, DO DO ms3 Emilie Hayes RN RN ld1 Destiny Hutchins [facility] Corrections: (The following items were deleted from the chart) 13:20 13:20 PMHx: Cancer in situ of urinary bladder; ld1 ld1 06/12 04:11 06/11 16:54 Telemetry/MedSurg (observation) ms3 kmf 06/12 04:11 06/11 16:54 ms3 [facility]
[2024-06-11] MEDS ORDERED: ONDANSETRON 4 MG/2 ML VIAL IV PRN (18:46)
[2024-06-11] MEDS ORDERED: ACETAMINOPHEN 500 MG TAB PO PRN (18:46)
[2024-06-11] MEDS ORDERED: D10W 125 ML IV PRN (19:05)
[2024-06-11] MEDS ORDERED: GLUCAGON 1 MG/VIAL IM PRN (19:05)
--- NOTE | 2024-06-11 21:26 | P.HP ---
Certification for Inpatient Patient admitted to: Observation Practitioner: I am a practitioner with admitting privileges, knowledge of patient current condition, hospital course, and medical plan of care. Services: Services provided to patient in accordance with Admission requirements found in Title 42 Section 412.3 of the Code of Federal Regulations Patient History Date of Service: 06/11/24 Reason for admission: Presyncopal episode History of Present Illness: 79-year-old -Emirati with a past medical history congestive heart failure, diabetes, hypertension, stage IV bladder CA, presents to the emergency room for hypotension. She reports symptoms started while cooking lunch, she reported feeling lightheaded, had to sit down. Called EMS, EMS on arrival blood pressure 80/50, she was treated with 500 mL normal saline's, blood pressure improved to 114/60, she reports feeling better after IV fluids. She reports recent diagnosis of congestive heart failure, reports recent echo with josie lockett. She reports not eating breakfast, she reports taking her blood pressure medication 1 hour before symptoms started. She denies checking her blood pressure prior to taking blood pressure medications. She was instructed to take blood pressure prior to taking home blood pressure medications, instructed on daily weight. She reported a headache today. She denied fever, recent infection, nausea vomiting diarrhea, dizziness. Plan to admit for presyncope, hypotension, acute on chronic heart failure with cardiology consult. Allergies codeine Allergy (Unknown, Verified 01/08/24 12:59) Vomiting, headache, dizziness, incoherent Home Medications: Atorvastatin Calcium 20 mg PO BEDTIME 07/19/23 Furosemide [Lasix] 0.5 tab PO DAILY 07/19/23 Gabapentin 600 mg PO BEDTIME 07/19/23 Insulin Degludec [Tresiba Flextouch U-100] 60 unit SQ DAILY 07/19/23 Verapamil HCl [Verapamil ER] 240 mg PO DAILY 07/19/23 carvediloL [Coreg] 12.5 mg PO BEDTIME 07/19/23 Losartan Potassium 100 mg PO DAILY 01/08/24 Tirzepatide [Mounjaro] 12.5 mg SQ EVERY 7TH DAY 01/08/24 - Past Medical/Surgical History Diabetic: Yes -: DM -: HTN -: Congestive heart failure -: Rt knee replacement - Social History Alcohol use: Yes CD- Drugs: No Caffeine use: Yes Review of Systems 10-point ROS is otherwise unremarkable Physical Examination - Physical Exam General: Alert, In no apparent distress, Oriented x3 HEENT: Atraumatic, Normocephalic Neck: Supple, JVD not distended Respiratory: Clear to auscultation bilaterally, Normal air movement Cardiovascular: Normal pulses, Regular rate/rhythm, Normal S1 S2 Capillary refill: <2 Seconds Gastrointestinal: Normal bowel sounds, Soft and benign Musculoskeletal: No clubbing, No swelling Integumentary: No breakdown, No significant lesion Neurological: Normal speech, Normal strength at 5/5 x4 extr, Cranial nerves 3-12 intact - Studies Laboratory Data (last 24 hrs) 06/11/24 06/11/24 06/11/24 13:45 13:45 13:45 WBC 4.40 Hgb 11.4 L Hct 34.5 L Plt Count 197 PT 12.0 INR 1.14 Sodium 138 Potassium 4.3 BUN 14 Creatinine 1.50 H Glucose 270 H Magnesium 1.8 Total Bilirubin 0.4 AST 11 L ALT 18 Alkaline Phosphatase 63 Assessment and Plan - Problems (Diagnosis) (1) Acute on chronic heart failure Current Visit: Yes Status: Acute Qualifiers: Heart failure type: unspecified Qualified Code(s): I50.9 - Heart failure, unspecified (2) Pre-syncope Current Visit: Yes Status: Acute (3) Hypotension Current Visit: Yes Status: Acute Qualifiers: Hypotension type: unspecified hypotension type Qualified Code(s): I95.9 - Hypotension, unspecified (4) Diabetes type 2 Current Visit: Yes Status: Acute Qualifiers: Diabetes mellitus complication status: without complication - Plan Assessment Acute on chronic heart failure unknown baseline Presyncopal episode Hypotension Cardiology consult, Telemetry, Orthostatic hypotension, Gentle IV fluids, secondary history of CHF daily weight, I&O Chest x-ray progressive central interstitial prominence and hazy opacities, could reflect pulmonary edema. Gentle diuretic lasix 40 po daily DARRIAN likely secondary to CKD, unknown baseline renal insufficiency Avoid nephrotoxic medication Anemia Trend H&H Hypertension Diabetes with hyperglycemia Resume appropriate home meds Accu-Cheks, sliding scale insulin A1c, Full code DVT SCDs Diet cardiac Disposition Home independent prior Discharge Plan: Home - Advance Directives Does patient have a Living Will: No Does patient have a Durable POA for Healthcare: No - Code Status/Comfort Care Code Status: Full Code Critical Care: No Time Spent Managing Pts Care (In Minutes): 55
[2024-06-11] MEDS ORDERED: carvediloL 6.25 MG TAB ONE (23:56)
[2024-06-11] MEDS ORDERED: INSULIN GLARGINE 100 UNIT/ML SQ ONE (23:57)
[2024-06-11] MEDS ORDERED: INSULIN REGULAR (HUMAN) 100 UNIT/ML ONE (23:58)
[2024-06-12] MEDS: INSULIN GLARGINE 100 UNIT/ML SQ SCH (00:03)
[2024-06-12] MEDS: carvediloL 12.5 MG TAB PO ONE (00:03)
[2024-06-12] MEDS: INSULIN REGULAR (HUMAN) 100 UNIT/ML SQ SCH (00:03)
[2024-06-12] MEDS: GABAPENTIN 300 MG CAP PO SCH (00:03)
[2024-06-12] MEDS: GABAPENTIN 300 MG CAP PO ONE (00:15)
[2024-06-12 02:34] VITALS: BMI 35.4
[2024-06-12 03:07] VITALS: O2SAT 99
[2024-06-12 04:49] LABS: Absolute Basophils 0.1 K/uL (0-0.5); Absolute Eosinophils 0.3 K/uL (0-0.5); Absolute Lymphocytes (CBC) 1.5 K/uL (0.7-4.9); Absolute Monocytes 0.6 K/uL (0.1-1.3); Absolute Neutrophil 2.7 K/uL (1.8-8.0); Basophils % 1.1 % (0-1.3); Eosinophils % 5.2 % (0-4.4); Hematocrit 37.4 % (36.0-45.0); Hemoglobin 12.6 g/dL (12.0-15.0); Lymphocytes % 29.6 % (15.3-44.8); MCH 28.7 pg (27.0-35.0); MCHC 33.7 g/dL (32.0-36.0); MPV 9.1 fL (7.6-11.3); Monocytes % 11.7 % (3.3-12.3); Neutrophils % 52.4 % (41.7-73.7); Platelets 210 thou/uL (152-406); Red Cell Distribution Width 13.3 % (12.1-15.2)
[2024-06-12 04:57] LABS: Sqamous Epithelial <5 /HPF (None Seen); Urine Bacteria None Seen /HPF (<20); Urine Bilirubin NEGATIVE (Negative); Urine Blood 1+ (Negative); Urine Clarity Turbid (Clear); Urine Color Colorless (Yellow); Urine Culture Reflex Order REFLEXED; Urine Glucose NEGATIVE (Negative); Urine Ketones NEGATIVE (Negative); Urine Microscopic Reflex YN ORDER UMIC; Urine Mucus Slight /HPF (None Seen); Urine Nitrite NEGATIVE (Negative); Urine Protein NEGATIVE (Negative); Urine RBC 21-50 /HPF (None Seen); Urine Urobilinogen Normal (Normal); Urine pH 5.5 (5.0-7.0)
[2024-06-12 05:08] LABS: Albumin/Globulin Ratio 0.8 (1.1-1.8); Anion Gap 6.5 mEq/L (5.0-15.0); Bilirubin Total 0.4 mg/dL (0.2-1.0); Magnesium 1.8 mg/dL (1.6-2.4); Potassium 3.5 mEq/L (3.5-5.1)
[2024-06-12 07:52] VITALS: TEMP 98.4
[2024-06-12] MEDS: FUROSEMIDE 40 MG TABLET PO SCH (09:00)
--- NOTE | 2024-06-12 10:52 | RAD REPORT ---
EXAMINATION: CT HEAD WITHOUT CONTRAST CLINICAL INDICATION: Female, 79 years old.AMS TECHNIQUE: Axial CT images from the skull base to the vertex without intravenous contrast. Coronal an d sagittal reformatted images were created from the data set. One or more of the following dose reduction techniques were used: Automated exposure control, adjustment of the mA and/or kV according to patient size, and/or iterative reconstruction. Unless otherwise specified, incidental findings do not require dedicated imaging follow-up. [id number]. COMPARISON: 08/26/2014 FINDINGS: INTRACRANIAL: No acute intracranial hemorrhage. No hydrocephalus. No mass effect or midline shift. No significant white matter disease.Moderate cerebral atrophy. VASCULATURE: No visualized abnormalities in the arteries or dural venous sinuses. SCALP/SKULL: No significant soft tissue or osseous abnormalities. SINUSES: The visualized paranasal sinuses and mastoid air cells are predominantly clear. IMPRESSION: No acute intracranial abnormality.
[2024-06-12 11:32] VITALS: BP 120/108
--- NOTE | 2024-06-12 13:41 | EKG ---
Test Date: 2024-06-11 Test Time: 13:42:11 [employer]: [place] MEASUREMENT RESULTS: Intervals: Rate: 56 VT: 178 QRSD: 68 QT: 450 QTc: 434 [place]: P: 57 VT: 178 QRS: -13 T: 63 INTERPRETIVE STATEMENTS: Sinus bradycardia Low voltage QRS Borderline ECG Compared to ECG 07/19/2023 10:35:13 Low QRS voltage now present Sinus rhythm no longer present Myocardial infarct finding no longer present Electronically Signed On 06-12-24 13:38:37 RN L AND D by Ravin Laguna
--- NOTE | 2024-06-12 18:57 | CON ---
Date of Consultation: 06/12/2024 Reason For Consultation: New syncopal episode. History Of Present Illness: A 79-year-old female, history of diabetes, congestive heart failure, hyp ertension, presents to the emergency room for low blood pressure. She claimed that she suddenly star yvette feeling very dizzy, lightheaded. She sat down, she did not pass out. Her blood pressure was 80/ 50. After she was treated with 500 cc of normal saline, blood pressure improved and she has been doi ng well since. Does not have any chest pain or shortness of breath. No nausea, vomiting, or diarrhe a. Past Medical History: As outlined above in the HPI. Medications: Refer reconciliation sheet for detailed list. Allergies: CODEINE. Family History: No premature coronary artery disease or cancer. Social History: Does not smoke or drink. Does not use any drugs. Review of Systems: All systems reviewed, they were negative except as mentioned in HPI. Physical Examination: Vital Signs: Reviewed. Head and Neck: Pupils are equal, reactive to light. Intact eye movements. No JVD. No cervical lym phadenopathy. Neck is supple. Thyroid is not enlarged. Lungs: Clear to auscultation bilaterally. No rhonchi, wheezing, or crackles. No accessory muscle u se. Heart: Regular rate and rhythm. No extra sounds. Abdomen: Soft, nontender. Bowel sounds positive. No organomegaly. No masses or hernia. No rigidi ty or rebound. Extremities: No edema, clubbing, cyanosis. Intact pulses. Skin: No rash. No nodule. Neuro: Alert, awake, oriented x3. No acute focal deficits appreciated. Investigations: BUN 15, creatinine 1.1. Troponins x3 are negative. Hemoglobin is 12.6. Assessment/recommendation: 1. Near syncope due to low blood pressure, probably she was dehydrated and responded very well to IV fluids. She is asymptomatic now. Cardiac enzymes are negative. From Cardiology standpoint, she can be released and follow up with me within a week postdischarge. 2. Acute renal failure due to dehydration, responded well to fluids. 3. Dehydration, resolved with IV fluids. Hold diuretics for now and follow up on an outpatient to re sume diuretics when it is necessary. Cardiology will sign off and the patient can be followed in the office in 1 week. SR/MODL Voice ID: [id number] Report ID: [id number]
[2024-06-12] MEDS ORDERED: carvediloL 12.5 MG TAB PO SCH (21:00)
[2024-06-12] MEDS ORDERED: HOME MED 1 EA UNK (Gabapentin [Gabapentin] 600 MG Tablet) PO SCH (21:00)
== END 2024-06-12 13:37 | disposition home or self-care (01) ==
LOC: ER 13:16 → ERHOLD 18:40
PROVIDERS: ADMIT Hospitalist; ATTEND Hospitalist
DX: I95.9 Hypotension, unspecified (principal); R55 Syncope and collapse; I50.9 Heart failure, unspecified; N17.9 Acute kidney failure, unspecified; D64.9 Anemia, unspecified; R51.9 Headache, unspecified; E11.9 Type 2 diabetes mellitus without complications; E86.0 Dehydration; Z88.5 Allergy status to narcotic agent; Z85.51 Personal history of malignant neoplasm of bladder
CPT/HCPCS: 36415; 70450; 71045; 80048; 80053; 80076; 81001; 82947; 83036; 83735; 83880; 84484; 85025; 85610; 87086; 87088; 93005; 97161; 99285; G0378